=== PATIENT | male | born 1970 | race Caucasian/White ===

== ENCOUNTER 2017-01-31 10:43 | Emergency (ER) | payer BC, OTHER ==
[2017-01-31] MEDS ORDERED: LORazepam 0.5 MG Tab PO ONE (11:13)
[2017-01-31] MEDS ORDERED: Ketorolac 60 MG/2 ML SDV IM ONE (11:13)
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
[2017-01-31 13:17] VITALS: BP 138/90
--- NOTE | 2017-02-01 07:26 | CR ---
Abdomen: Supine and upright views of the abdomen were obtained. Comparison: Previous abdominal x-ray of 08/05/16. Slight vascular calcification is seen within the pelvis. Bowel gas pattern is normal. No soft tissue abnormality is seen. No free air is identified. Bony structures are within normal limits for the patient's age. Impression: 1. Incidental findings. Diagnostic code #2
== END 2017-01-31 12:05 | disposition home or self-care (01) ==
LOC: JD.ED 10:43
DX: F41.9 Anxiety disorder, unspecified (principal); R51 Headache; M79.1 Myalgia; I10 Essential (primary) hypertension; K21.9 Gastro-esophageal reflux disease without esophagitis; Z79.899 Other long term (current) drug therapy; Z98.890 Other specified postprocedural states; V89.2XXA Person injured in unspecified motor-vehicle accident, traffic, initial encounter
CPT/HCPCS: 74020; 96372; 99284; A9270; J1885; 99283

== ENCOUNTER 2017-04-06 17:27 | Emergency (ER) | payer OTHER ==
[2017-04-06 17:40] VITALS: BP 169/89
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
[2017-04-06] MEDS ORDERED: Ondansetron 4 MG Tab.DIS PO ONE (18:14)
[2017-04-06] MEDS ORDERED: Ketorolac 30 MG/ML SDV IM ONE (18:14)
[2017-04-06] MEDS ORDERED: Cyclobenzaprine 10 MG Tab PO ONE (18:14)
== END 2017-04-06 19:38 | disposition home or self-care (01) ==
LOC: JD.ED 17:27
DX: G44.209 Tension-type headache, unspecified, not intractable (principal); K21.9 Gastro-esophageal reflux disease without esophagitis; E66.9 Obesity, unspecified; Z79.899 Other long term (current) drug therapy
CPT/HCPCS: 96372; 99284; A9270; J1885

== ENCOUNTER 2017-08-09 11:49 | Emergency (ER) | payer OTHER ==
[2017-08-09 12:11] VITALS: BP 160/98
[2017-08-09] MEDS ORDERED: Ondansetron 4 MG/2 ML SDV IVPUSH ONE (12:58)
[2017-08-09] MEDS ORDERED: Alum Hydrox/Mag Hydrox/Simeth 30 ML, Lidocaine 2% 15 ML PO ONE ×2 (12:58)
[2017-08-09] MEDS ORDERED: Sodium Chloride 0.9% 10 ML Syringe FLUSH PRN ×2 (12:58→15:29)
[2017-08-09] MEDS ORDERED: Sodium Chloride 0.9% 1,000 ML IV ONE (12:58)
--- NOTE | 2017-08-09 13:22 | EDM.PDOC ---
ED HPI GENERAL MEDICAL PROBLEM - General Chief Complaint: Abdominal Pain Stated Complaint: ABDOMINAL PAIN Time Seen by Provider: 08/09/17 12:49 Source of Information: Reports: Patient History Limitations: Reports: No Limitations - History of Present Illness INITIAL COMMENTS - FREE TEXT/NARRATIVE: Patient 46-year-old male who presents to the ED complaining of epigastric discomfort. Symptoms started approx 5 days ago and have been waxing waning in intensity since. With onset of discomfort he has been mildly nauseated and has some episodes of emesis. Describes discomfort as a crampy sensation, acid reflux burning sensation, rated 8 out of 10 at times. He has been taking Prilosec daily. He continues to drink caffeine 3 cups of coffee every morning and eats spicy foods that do aggravate the discomfort. States there is no relation to discomfort with fatty foods. States the discomfort does increase with leaning forward and also with palpation and bending over. States he still has his gallbladder and appendix. He's never had an ulcer in the past. He's been diagnosed with hypertension and is currently well controlled. Denies consuming excessive amounts of alcohol or taking excessive amounts of ibuprofen/ Advil. Currently denies any chest pain, shortness of breath, bloody emesis or blood in his stool, diarrhea, recent sick exposures, painful urination, or any additional complaints. Upper Abdomen Pain Score (Numeric/FACES): 6 - Related Data Allergies Allergy/AdvReac Type Severity Reaction Status Date / Time No Known Allergies Allergy Verified 08/09/17 12:12 Home Meds: Home Meds Lisinopril 20 mg PO DAILY 01/31/17 [History] Omeprazole Magnesium [Prilosec Otc] 20 mg PO DAILY 01/31/17 [History] Acetaminophen/HYDROcodone [Lanse 325-5 MG] 1 tab PO Q6H PRN #15 tablet 08/09/17 [Rx] Aspirin 81 mg PO DAILY 08/09/17 [History] Sucralfate [Carafate] 1 gm PO Q6H #24 cup 08/09/17 [Rx] Past Medical History - Past Health History Medical/Surgical History: Denies Medical/Surgical History Cardiovascular History: Reports: Hypertension Gastrointestinal History: Reports: GERD Psychiatric History: Reports: Anxiety Endocrine/Metabolic History: Reports: Obesity/BMI 30+ - Past Surgical History Musculoskeletal Surgical History: Reports: Other (See Below) Other Musculoskeletal Surgeries/Procedures:: neck fusion Social & Family History - Family History Family Medical History: Noncontributory - Tobacco Use Smoking Status *Q: Never Smoker Second Hand Smoke Exposure: No - Caffeine Use Caffeine Use: Reports: Coffee - Recreational Drug Use Recreational Drug Use: No - Living Situation & Occupation Living situation: Reports: Occupation: Employed ED ROS GENERAL - Review of Systems Review Of Systems: See Below Constitutional: Reports: Malaise, Decreased Appetite. Denies: Fever, Chills HEENT: Reports: No Symptoms Respiratory: Reports: No Symptoms Cardiovascular: Reports: No Symptoms GI/Abdominal: Reports: Abdominal Pain, Decreased Appetite, Nausea, Vomiting. Denies: Black Stool, Bloody Stool, Constipation, Diarrhea, Distension, Hematemesis : Reports: No Symptoms Musculoskeletal: Reports: No Symptoms Skin: Reports: No Symptoms Neurological: Reports: No Symptoms Psychiatric: Reports: No Symptoms ED EXAM, GI/ABD - Physical Exam Exam: See Below Exam Limited By: No Limitations General Appearance: Alert, WD/WN, Mild Distress Ears: Hearing Grossly Normal Nose: Normal Inspection Throat/Mouth: Normal Inspection, Normal Oropharynx, Normal Voice, No Airway Compromise Neck: Normal Inspection, Supple Respiratory/Chest: No Respiratory Distress, Lungs Clear, Normal Breath Sounds, No Accessory Muscle Use, Chest Non-Tender Cardiovascular: Normal Peripheral Pulses, Regular Rate, Rhythm GI/Abdominal Exam: Normal Bowel Sounds, Soft, No Organomegaly, No Distention, Tender (Epigastric region. No pain with palpation of the right upper and left upper quadrant. Negative Hawthorne sign. Negative McBurney's point.) Back Exam: Normal Inspection Extremities: Normal Inspection Neurological: Alert, Oriented, CN II-XII Intact, Normal Cognition, No Motor/ Sensory Deficits Psychiatric: Normal Affect, Normal Mood Skin Exam: Warm, Dry, Intact, Normal Color, No Rash Course - Vital Signs Last Recorded V/S: Last Vital Signs Temp 97.1 F 08/09/17 12:07 Pulse 86 08/09/17 12:07 Resp 16 08/09/17 12:07 BP 160/98 H 08/09/17 12:07 Pulse Ox 96 08/09/17 12:07 - Orders/Labs/Meds Labs: Laboratory Tests 08/09/17 08/09/17 08/09/17 Range/Units 13:15 13:15 13:15 WBC 11.37 H (4.23-9.07) K/mm3 RBC 5.98 (4.63-6.08) M/mm3 Hgb 16.6 (13.7-17.5) gm/L Hct 46.6 (40.1-51.0) % MCV 77.9 L (79.0-92.2) fl MCH 27.8 (25.7-32.2) pg MCHC 35.6 H (32.2-35.5) g/dl RDW Std Deviation 36.4 (35.1-43.9) fL Plt Count 200 (163-337) K/mm3 MPV 10.3 (9.4-12.3) fl Neut % (Auto) 66.0 (34.0-67.9) % Lymph % (Auto) 22.2 (21.8-53.1) % Wilkes % (Auto) 7.8 (5.3-12.2) % Eos % (Auto) 2.4 (0.8-7.0) Baso % (Auto) 0.5 (0.1-1.2) % Neut # (Auto) 7.51 H (1.78-5.38) K/mm3 Lymph # (Auto) 2.52 (1.32-3.57) K/mm3 Wilkes # (Auto) 0.89 H (0.30-0.82) K/mm3 Eos # (Auto) 0.27 (0.04-0.54) K/mm3 Baso # (Auto) 0.06 (0.01-0.08) K/mm3 Manual Slide Review Normal smear Sodium 139 (136-145) mEq/L Potassium 3.8 (3.5-5.1) mEq/L Chloride 100 (98-107) mEq/L Carbon Dioxide 26 (21-32) mEq/L Anion Gap 16.8 H (5-15) BUN 19 H (7-18) mg/dL Creatinine 1.1 (0.7-1.3) mg/dL Est Cr Clr Drug Dosing 79.45 mL/min Estimated GFR (MDRD) > 60 (>60) mL/min BUN/Creatinine Ratio 17.3 (14-18) Glucose 120 H (74-106) mg/dL Calcium 9.1 (8.5-10.1) mg/dL Total Bilirubin 0.4 (0.2-1.0) mg/dL AST 26 (15-37) U/L ALT 65 H (16-63) U/L Alkaline Phosphatase 86 (46-116) U/L Troponin I < 0.017 (0.00-0.056) ng/mL C-Reactive Protein < 0.2 (<1.0) mg/dL Total Protein 7.6 (6.4-8.2) g/dl Albumin 4.1 (3.4-5.0) g/dl Globulin 3.5 gm/dL Albumin/Globulin Ratio 1.2 (1-2) Lipase 135 (73-393) U/L Urine Color (Yellow) Urine Appearance (Clear) Urine pH (5.0-8.0) Ur Specific [place] (1.005-1.030) Urine Protein (Negative) Urine Glucose (UA) (Negative) Urine Ketones (Negative) Urine Occult Blood (Negative) Urine Nitrite (Negative) Urine Bilirubin (Negative) Urine Urobilinogen (0.2-1.0) Ur Leukocyte Esterase (Negative) Urine RBC (0-5) /hpf Urine WBC (0-5) /hpf Ur Epithelial Cells (0-5) /hpf Urine Bacteria (FEW) /hpf Urine Mucus (FEW) /hpf 08/09/17 Range/Units 13:50 WBC (4.23-9.07) K/mm3 RBC (4.63-6.08) M/mm3 Hgb (13.7-17.5) gm/L Hct (40.1-51.0) % MCV (79.0-92.2) fl MCH (25.7-32.2) pg MCHC (32.2-35.5) g/dl RDW Std Deviation (35.1-43.9) fL Plt Count (163-337) K/mm3 MPV (9.4-12.3) fl Neut % (Auto) (34.0-67.9) % Lymph % (Auto) (21.8-53.1) % Wilkes % (Auto) (5.3-12.2) % Eos % (Auto) (0.8-7.0) Baso % (Auto) (0.1-1.2) % Neut # (Auto) (1.78-5.38) K/mm3 Lymph # (Auto) (1.32-3.57) K/mm3 Wilkes # (Auto) (0.30-0.82) K/mm3 Eos # (Auto) (0.04-0.54) K/mm3 Baso # (Auto) (0.01-0.08) K/mm3 Manual Slide Review Sodium (136-145) mEq/L Potassium (3.5-5.1) mEq/L Chloride (98-107) mEq/L Carbon Dioxide (21-32) mEq/L Anion Gap (5-15) BUN (7-18) mg/dL Creatinine (0.7-1.3) mg/dL Est Cr Clr Drug Dosing mL/min Estimated GFR (MDRD) (>60) mL/min BUN/Creatinine Ratio (14-18) Glucose (74-106) mg/dL Calcium (8.5-10.1) mg/dL Total Bilirubin (0.2-1.0) mg/dL AST (15-37) U/L ALT (16-63) U/L Alkaline Phosphatase (46-116) U/L Troponin I (0.00-0.056) ng/mL C-Reactive Protein (<1.0) mg/dL Total Protein (6.4-8.2) g/dl Albumin (3.4-5.0) g/dl Globulin gm/dL Albumin/Globulin Ratio (1-2) Lipase (73-393) U/L Urine Color Yellow (Yellow) Urine Appearance Clear (Clear) Urine pH 6.0 (5.0-8.0) Ur Specific [place] 1.025 (1.005-1.030) Urine Protein Negative (Negative) Urine Glucose (UA) Negative (Negative) Urine Ketones Negative (Negative) Urine Occult Blood Negative (Negative) Urine Nitrite Negative (Negative) Urine Bilirubin Negative (Negative) Urine Urobilinogen 0.2 (0.2-1.0) Ur Leukocyte Esterase Negative (Negative) Urine RBC 0-5 (0-5) /hpf Urine WBC 0-5 (0-5) /hpf Ur Epithelial Cells 0-5 (0-5) /hpf Urine Bacteria Rare (FEW) /hpf Urine Mucus Few (FEW) /hpf Meds: Medications Discontinued Medications Generic Name Dose Route Start Last Admin Trade Name Freq PRN Reason Stop Dose Admin Al Hydroxide/Mg Hydroxide 30 0 ml 02/23/18 12:58 08/09/17 13:24 ml/ Lidocaine HCl 15 ml PO 08/09/17 12:59 45 ml ONETIME ONE Administration Diatrizoate Meglum/Diatrizoate Sod 90 ml 08/09/17 15:29 08/09/17 15:36 Gastrografin 37% PO 08/09/17 15:30 90 ml ONETIME ONE Administration Diphenhydramine HCl 25 mg 08/09/17 14:23 08/09/17 14:34 Benadryl IVPUSH 08/09/17 14:24 25 mg ONETIME ONE Administration Hydromorphone HCl 0.5 mg 08/09/17 14:17 08/09/17 14:32 Dilaudid IVPUSH 08/09/17 14:18 0.5 mg ONETIME ONE Administration Hydromorphone HCl 0.5 mg 08/09/17 16:27 08/09/17 16:44 Dilaudid IVPUSH 08/09/17 16:28 0.5 mg ONETIME ONE Administration Sodium Chloride 1,000 mls @ 999 mls/hr 08/09/17 12:58 08/09/17 13:23 Normal Saline IV 08/09/17 13:58 999 mls/hr ONETIME ONE Administration Iopamidol 100 ml 08/09/17 15:29 08/09/17 15:36 Isovue-300 (61%) IVPUSH 08/09/17 15:30 100 ml ONETIME ONE Administration Metoclopramide HCl 5 mg 08/09/17 14:23 08/09/17 14:29 Reglan IVPUSH 08/09/17 14:24 5 mg ONETIME ONE Administration Ondansetron HCl 4 mg 08/09/17 12:58 08/09/17 13:21 Zofran IVPUSH 08/09/17 12:59 4 mg ONETIME ONE Administration Pantoprazole Sodium 80 mg 08/09/17 14:08 08/09/17 14:20 Protonix Iv IVPUSH 08/09/17 14:09 80 mg .BOLUS ONE Administration Sodium Chloride 10 ml 08/09/17 12:58 08/09/17 13:15 Saline Flush FLUSH 10 ml ASDIRECTED PRN Administration Keep Vein Open Sodium Chloride 10 ml 08/09/17 15:29 08/09/17 15:36 Saline Flush FLUSH 10 ml ONETIME PRN Administration IV FLUSH Sucralfate 1 gm 08/09/17 14:08 08/09/17 14:25 Carafate PO 08/09/17 14:09 1 gm ONETIME ONE Administration Sucralfate 1 gm 08/09/17 16:27 08/09/17 16:43 Carafate PO 08/09/17 16:28 1 gm ONETIME ONE Administration - Re-Assessments/Exams Free Text/Narrative Re-Assessment/Exam: IV established with normal saline 999 MLS per hour, Zofran 4 mg IVP, and also GI cocktail by mouth. Initial labs and studies include CBC, chem 14, lipase, UA, CRP, EKG, and 2 view of the abdomen flat and upright. 08/09/17 13:47 X-ray of the abdomen impression: Incidental findings. Nothing acute is seen. EKG sinus rhythm at a rate of [address] changes noted. One PVC noted. Reviewed by Dr. Marcelo. No significant findings. 08/09/17 13:49 Labs reviewed: White blood cell count 11.37, hemoglobin 16.6, platelet count 200, sodium 139, potassium 3.8, AG 16.8, by mouth and 19, creatinine 1.1, glucose 120, AST 65, CRP less than 0.2, and lipase 135. 08/09/17 14:09 reassessment, patient has no improvement is to his symptoms. Ordered a CT of the abdomen and pelvis with oral and IV contrast. In addition ordered Protonix 80 mg IV and sucralfate. 08/09/17 16:26 CT impression: Small hiatal hernia with wall thickening seen within the distal esophagus suggesting reflux esophagitis. Fatty infiltration within the liver. No additional abnormality is identified on CT study of the abdomen and pelvis. Patient continues to have some mild discomfort and mild nausea improving. Shared results of labs and also CT study with him. Will discharge patient home with instructions as documented. Troponin: Within normal limits. If is related to his heart troponin should be elevated. Symptoms have been going on for 4 days. Patient discharged home. Departure - Departure Time of Disposition: 16:27 Disposition: Home, Self-Care 01 Condition: Good Clinical Impression: Reflux esophagitis - Discharge Information Prescriptions: Acetaminophen/HYDROcodone [Lanse 325-5 MG] 1 tab PO Q6H PRN #15 tablet PRN Reason: Pain (Severe 7-10) Sucralfate [Carafate] 1 gm PO Q6H #24 cup Instructions: Esophagitis, Food Choices for Gastroesophageal Reflux Disease, Adult, Nausea and Vomiting, Adult, [id number], Abdominal Pain, Adult, Easy-to- Read, Gastroesophageal Reflux Disease, Adult Referrals: Elie Luna Jr, MD [Primary Care Provider] - Reinaldo Blas MD [Physician] - Forms: ED Department Discharge, ED Return to Work/School Form Additional Instructions: As discussed CT of reflux esophagitis. Treatment at this point will be Prilosec 40 mg every morning half-hour prior to eating. Carafate one tab every 6 hours. May take Zantac 150 mg at at bedtime as well. Take Lanse one tab every 6 hours for severe pain. May take Zofran One tab every 6 hours as needed for nausea vomiting. Refrain from spicy foods, alcoholic beverages, chocolates, carbonated beverages, caffeinated beverages, or any additional aggravating foods or liquids. You will need a EGD. See your primary care provider this following week for reevaluation. Return to the ED for any new or worsening symptoms. No driving while taking the Lanse. No driving today since receiving a sedative medication while in the ED.
--- NOTE | 2017-08-09 13:40 | CR ---
Abdomen: Supine and upright views of the abdomen were obtained. Comparison: Previous abdominal x-ray of 01/31/17. Bowel gas pattern is normal. Minimal vascular calcification is seen within the pelvis. No abnormal calcifications or soft tissue abnormality is seen.. No free air is seen. Bony structures are unremarkable. Impression: 1. Incidental finding. Nothing acute is seen. Diagnostic code #2
[2017-08-09] MEDS ORDERED: Pantoprazole 40 MG Vial IVPUSH ONE (14:08)
[2017-08-09] MEDS ORDERED: Sucralfate Suspension 1 GM/10 ML Cup PO ONE ×2 (14:08→16:27)
[2017-08-09] MEDS ORDERED: HYDROmorphone 0.5 MG/0.5 ML SYRINGE IVPUSH ONE ×2 (14:17→16:27)
[2017-08-09] MEDS ORDERED: Metoclopramide 10 MG/2 ML SDV IVPUSH ONE (14:23)
[2017-08-09] MEDS ORDERED: diphenhydrAMINE 50 MG/ML SDV IVPUSH ONE (14:23)
[2017-08-09] MEDS ORDERED: Iopamidol 612 MG/ML 100 ML Bottle IVPUSH ONE (15:29)
[2017-08-09] MEDS ORDERED: Diatrizoate Meglumine/Diatrizoate Sodium 37% 120 ML Bottle PO ONE (15:29)
--- NOTE | 2017-08-09 16:07 | CT ---
CT abdomen and pelvis Technique: Multiple axial sections were obtained from above the dome of the diaphragm inferiorly through the pubic symphysis. Intravenous and oral contrast utilized. Delayed images were obtained through the bladder. Comparison: No prior CT abdomen or pelvis study, previous abdominal x-ray performed earlier on the same day (12:54 PM). Visualized lung bases shows nothing acute. Fatty infiltration is seen within the liver. Small hiatal hernia is seen. There is thickening of the distal esophageal wall suggesting the possibility of reflux esophagitis. Spleen appears within normal limits. Gallbladder contains no calcified gallstones. Adrenal glands are unremarkable. Pancreas appears within normal limits. Kidneys show symmetric contrast enhancement without hydronephrosis or mass. Aorta shows atherosclerotic calcification which continues into the iliac arteries. No aneurysm is seen. No retroperitoneal adenopathy or mesenteric abnormalities are seen. Appendix is seen which appears normal. No pelvic mass or adenopathy is identified. Delayed images shows contrast within the distal ureters and within the bladder. No free fluid or inflammatory change is seen. No bowel dilatation is identified. Bone window settings were reviewed which appear within normal limits for the patient's age. Impression: 1. Small hiatal hernia with wall thickening seen within the distal esophagus suggesting reflux esophagitis. 2. Fatty infiltration within the liver. 3. No additional abnormality is identified on CT study of the abdomen and pelvis. Diagnostic code #3
== END 2017-08-09 17:25 | disposition home or self-care (01) ==
LOC: JD.ED 11:49
DX: K21.0 Gastro-esophageal reflux disease with esophagitis (principal); K44.9 Diaphragmatic hernia without obstruction or gangrene; I10 Essential (primary) hypertension; Z79.82 Long term (current) use of aspirin; Z79.899 Other long term (current) drug therapy
CPT/HCPCS: 36415; 74019; 74177; 80053; 81001; 83690; 84484; 85025; 86140; 93005; 96361; 96374; 96375; 96376; 99285; A9270; C9113; J1170; J1200; J2405; J2765; J7040; J7050; Q9963; Q9967; 99284

== ENCOUNTER 2017-08-28 06:58 | Day surgery (SDC) | payer OTHER, SELFPAY ==
[~2017-08-28 06:58] MED LIST: Lactated Ringers 1,000 ML IV SCH; Lidocaine 1%/Sod Bicarbonate in NS 8.4% 1 ML Syringe IDERM PRN; Sodium Chloride 0.9% 10 ML Syringe FLUSH PRN
[2017-08-28] MEDS ORDERED: fentaNYL 100 MCG/2 ML SDV ONE (07:08)
[2017-08-28] MEDS ORDERED: Propofol 200 MG/20 ML SDV ONE (07:08)
[2017-08-28] MEDS ORDERED: Lidocaine 1% 4 ML ONE (07:13)
--- NOTE | 2017-08-28 07:25 | PCM.PREANE ---
Preanesthetic Assessment - Procedure Proposed Procedure: EGD - Anesthesia/Transfusion/Family Hx Anesthesia History: Prior Anesthesia Without Reaction Family History of Anesthesia Reaction: No - Review of Systems General: No Symptoms Pulmonary: No Symptoms Cardiovascular: No Symptoms Gastrointestinal: Abdominal Pain, Difficulty Swallowing (pills) Neurological: No Symptoms Other: Reports: None - Physical Assessment NPO Status Date: 08/27/17 NPO Status Time: 21:00 Pulse: 83 O2 Sat by Pulse Oximetry: 96 Respiratory Rate: 18 Blood Pressure: 148/101 Temperature: 36.6 C Weight: 106 kg ASA Class: 2 Mental Status: Alert & Oriented x3 Airway Class: Mallampati = 2 Dentition: Reports: Partial Thyro-Mental Finger Breadths: 3 Mouth Opening Finger Breadths: 3 ROM/Head Extension: Full Lungs: Clear to Auscultation, Normal Respiratory Effort Cardiovascular: Regular Rate, Regular Rhythm - Allergies Allergies/Adverse Reactions: Allergies Allergy/AdvReac Type Severity Reaction Status Date / Time No Known Allergies Allergy Verified 08/27/17 12:31 - Acknowledgements Anesthesia Type Planned: MAC Pt an Appropriate Candidate for the Planned Anesthesia: Yes Alternatives and Risks of Anesthesia Discussed w Pt/Guardian: Yes Pt/Guardian Understands and Agrees with Anesthesia Plan: Yes PreAnesthesia Questionnaire - Past Health History Medical/Surgical History: Denies Medical/Surgical History HEENT History: Reports: Other (See Below) Other HEENT History: partial Cardiovascular History: Reports: Hypertension Respiratory History: Reports: None Gastrointestinal History: Reports: GERD, Other (See Below) Other Gastrointestinal History: dysphagia Genitourinary History: Reports: Other (See Below) Other Genitourinary History: hydrocele, testicular mass, varicocele FLAT CUTTER History: Reports: None Musculoskeletal History: Reports: None Psychiatric History: Reports: None, Anxiety Endocrine/Metabolic History: Reports: Obesity/BMI 30+ Hematologic History: Reports: None Immunologic History: Reports: None Oncologic (Cancer) History: Reports: None Dermatologic History: Reports: None - Past Surgical History Head Surgeries/Procedures: Reports: None HEENT Surgical History: Reports: None Cardiovascular Surgical History: Reports: None Respiratory Surgical History: Reports: None Female Surgical History: Reports: None Male Surgical History: Reports: None Endocrine Surgical History: Reports: None Neurological Surgical History: Reports: C-Spine, Other (See Below) Other Neurological Surgeries/Procedures: [id number] fusion Musculoskeletal Surgical History: Reports: Other (See Below) Other Musculoskeletal Surgeries/Procedures:: neck fusion Oncologic Surgical History: Reports: None Dermatological Surgical History: Reports: None - SUBSTANCE USE Smoking Status *Q: Former Smoker Second Hand Smoke Exposure: No Recreational Drug Use History: No - HOME MEDS Home Medications: Home Meds Lisinopril 20 mg PO DAILY 01/31/17 [History] Omeprazole Magnesium [Prilosec Otc] 20 mg PO DAILY 01/31/17 [History] Modafinil [Provigil] 200 mg PO ASDIRECTED PRN 08/27/17 [History] - CURRENT (IN HOUSE) MEDS Current Meds: Current Medications Lactated Ringer's (Ringers, Lactated) 1,000 mls @ 125 mls/hr IV ASDIRECTED JERALD Lidocaine/Sodium Bicarbonate (Buffered Lidocaine 1% In Ns 8.4%) 0.25 ml IDERM ONETIME PRN PRN Reason: Prior to IV Start Sodium Chloride (Saline Flush) 10 ml FLUSH ASDIRECTED PRN PRN Reason: Keep Vein Open Discontinued Medications Fentanyl (Sublimaze) Confirm Administered Dose 100 mcg .ROUTE .STK-MED ONE Stop: 08/28/17 07:09 Lidocaine HCl (Xylocaine-Mpf 1%) Confirm Administered Dose 4 mls @ as directed .ROUTE .STK-MED ONE Stop: 08/28/17 07:14 Propofol (Diprivan 20 Ml) Confirm Administered Dose 200 mg .ROUTE .STK-MED ONE Stop: 08/28/17 07:09
--- NOTE | 2017-08-28 08:23 | PCM48HPAN ---
Post Anesthesia Note - EVALUATION WITHIN 48HRS OF ANESTHETIC Vital Signs in Normal Range: Yes Patient Participated in Evaluation: Yes Respiratory Function Stable: Yes Airway Patent: Yes Cardiovascular Function Stable: Yes Hydration Status Stable: Yes Pain Control Satisfactory: Yes Nausea and Vomiting Control Satisfactory: Yes Mental Status Recovered: Yes Pulse Rate: 84 SaO2: 96 Resp Rate: 16 Temperature: 36.2 C Blood Pressure: 129/85
--- NOTE | 2017-08-28 08:37 | PCM.OPNOTE ---
- General Post-Op/Procedure Note Date of Surgery/Procedure: 08/28/17 Operative Procedure(s): Esophagogastroduodenoscopy with proximal and distal esophageal biopsies. Gastric and antral biopsies as well. Findings: 1. Hiatal hernia 2. Gastric erosions lesser curve 3. Antritis There was no stricturing or esophageal webs. Pre Op Diagnosis: 1. Dysphagia. 2. Dyspepsia Post-Op Diagnosis: 1. Hiatal hernia sliding type I. 2. Small type 4 gastric ulcer. 3. Mild antritis Anesthesia Technique: MAC, Moderate Sedation Primary Surgeon: Reinaldo Blas Pathology: Distal and proximal esophageal biopsies. Gastric biopsies as well as antral biopsies. EBL in mLs: 0 Complications: None Condition: Good Free Text/Narrative:: After adequate IV sedation and analgesia was obtained with monitoring the patient was placed on his left side. Through a bite-block lubricated upper endoscope was inserted into the esophagus and advanced under direct vision to the stomach where additional air was given. The antrum was remarkable for diffuse erythema. There were no ulcers or erosions. The scope was introduced into the second part of the duodenum. The second and first ports were endoscopically normal with no inflammatory changes in these areas. I biopsied the antrum 2 for histologic evaluation. In the retroflexed view there were 2 shallow linear erosive ulcerations near the lesser curve with exudate. The peptic change in these areas are consistent with type IV gastric erosions. These were biopsied. The body of the stomach was otherwise unremarkable. The scope was withdrawn to the GE junction where there was a small hiatal hernia with no stasis changes. I biopsied the GE junction and the proximal esophagus. These structures were normal. Photographs were taken for the patient and for the record. There were no complications.
[2017-08-28 09:01] VITALS: BP 136/74
== END 2017-08-28 08:56 | disposition home or self-care (01) ==
LOC: JD.SDS 06:58
PROVIDERS: ATTEND Surgery
DX: K29.50 Unspecified chronic gastritis without bleeding (principal); K31.9 Disease of stomach and duodenum, unspecified; K31.7 Polyp of stomach and duodenum; K44.9 Diaphragmatic hernia without obstruction or gangrene; K29.60 Other gastritis without bleeding; K25.9 Gastric ulcer, unspecified as acute or chronic, without hemorrhage or perforation; K21.9 Gastro-esophageal reflux disease without esophagitis; I10 Essential (primary) hypertension; N43.3 Hydrocele, unspecified; N50.9 Disorder of male genital organs, unspecified; I86.1 Scrotal varices; E66.9 Obesity, unspecified; F41.9 Anxiety disorder, unspecified; Z79.899 Other long term (current) drug therapy; Z87.891 Personal history of nicotine dependence; Z68.36 Body mass index [BMI] 36.0-36.9, adult
CPT/HCPCS: 43239; J3010; J7120; 00731; J2001; J2704

== ENCOUNTER 2017-10-23 12:03 | Emergency (ER) | payer MEDICAID, OTHER ==
[2017-10-23 12:17] VITALS: BP 153/101
[2017-10-23] MEDS ORDERED: Famotidine 20 MG/2 ML SDV IVPUSH ONE (12:32)
[2017-10-23] MEDS ORDERED: Sodium Chloride 0.9% 500 ML IV ONE (12:32)
[2017-10-23] MEDS ORDERED: Sodium Chloride 0.9% 10 ML Syringe FLUSH PRN (12:32)
[2017-10-23] MEDS ORDERED: Ondansetron 4 MG/2 ML SDV IVPUSH ONE (12:32)
[2017-10-23] MEDS ORDERED: Acetaminophen 325 MG Tab PO ONE (15:06)
[2017-10-23] MEDS ORDERED: HYDROmorphone 0.5 MG/0.5 ML SYRINGE IVPUSH ONE (15:06)
[2017-10-23] MEDS ORDERED: Metoclopramide 10 MG/2 ML SDV IVPUSH ONE (15:06)
[2017-10-23] MEDS ORDERED: Ketorolac 30 MG/ML SDV IVPUSH SCH (15:15)
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
--- NOTE | 2017-10-24 10:20 | CR ---
Chest: Frontal view of the chest was obtained. Comparison: No prior chest x-ray. Heart size and mediastinum are normal. Lungs are clear. Bony structures are grossly intact. Impression: 1. Nothing acute is seen on frontal chest x-ray. Diagnostic code #1
== END 2017-10-23 16:05 | disposition home or self-care (01) ==
LOC: JD.ED 12:03
DX: R07.89 Other chest pain (principal); R42 Dizziness and giddiness; R51 Headache; I10 Essential (primary) hypertension; K21.9 Gastro-esophageal reflux disease without esophagitis; F41.9 Anxiety disorder, unspecified; Z87.891 Personal history of nicotine dependence; Z79.899 Other long term (current) drug therapy
CPT/HCPCS: 36415; 71045; 80053; 83690; 84484; 85025; 86850; 86900; 86901; 93005; 96361; 96374; 96375; 99284; A9270; J1170; J1885; J2405; J2765; J7040; J7050; 93010

== ENCOUNTER 2018-02-06 16:55 | Emergency (ER) | payer MEDICAID ==
[2018-02-06 17:12] VITALS: BP 121/70
[2018-02-06] MEDS ORDERED: Sodium Chloride 0.9% 10 ML Syringe FLUSH PRN (17:21)
[2018-02-06] MEDS ORDERED: Ondansetron 4 MG/2 ML SDV IVPUSH ONE ×2 (17:21→18:25)
[2018-02-06] MEDS ORDERED: Lactated Ringers 1,000 ML IV ONE ×2 (17:21→18:25)
[2018-02-06] MEDS ORDERED: Famotidine 20 MG/2 ML SDV IVPUSH ONE (17:21)
[2018-02-06] MEDS ORDERED: Ketorolac 30 MG/ML SDV IVPUSH ONE (17:21)
--- NOTE | 2018-02-06 18:02 | EDM.PDOC ---
ED HPI GENERAL MEDICAL PROBLEM - General Chief Complaint: Gastrointestinal Problem Stated Complaint: VOMITTING Time Seen by Provider: 02/06/18 17:04 Source of Information: Reports: Patient History Limitations: Reports: No Limitations - History of Present Illness INITIAL COMMENTS - FREE TEXT/NARRATIVE: 47-year-old male presents for evaluation and treatment of abdominal pain, nausea , vomiting and diarrhea. Reports the symptoms started last night around 1700. He states that anything he eats either causes emesis or diarrhea. He is currently complaining of headaches, body aches, nausea, vomiting, diarrhea and hematochezia. Is unable estimate how many episodes of emesis he has had, greater than 10 or he is unable to estimate how many episodes of diarrhea he has had, greater than 10. No blood in his stool. Denies recent antibiotic usage. Denies any recent travel. No ill contacts. No Questionable foods. Location: Reports: Abdomen Abdominal Pain Score (Numeric/FACES): 8 - Related Data Allergies Allergy/AdvReac Type Severity Reaction Status Date / Time No Known Allergies Allergy Verified 02/06/18 20:35 Home Meds: Home Meds Lisinopril 20 mg PO DAILY 01/31/17 [History] Omeprazole Magnesium [Prilosec Otc] 20 mg PO DAILY 01/31/17 [History] Modafinil [Provigil] 200 mg PO ASDIRECTED PRN 08/27/17 [History] Ondansetron [Zofran ODT] 4 mg PO Q6H PRN #20 tab.dis 02/06/18 [Rx] Past Medical History - Past Health History Medical/Surgical History: Denies Medical/Surgical History HEENT History: Reports: Other (See Below) Other HEENT History: partial Cardiovascular History: Reports: Hypertension Respiratory History: Reports: None Gastrointestinal History: Reports: GERD, Other (See Below) Other Gastrointestinal History: dysphagia Genitourinary History: Reports: Other (See Below) Other Genitourinary History: hydrocele, testicular mass, varicocele 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 Musculoskeletal History: Reports: Back Pain, Chronic Psychiatric History: Reports: None, Anxiety Endocrine/Metabolic History: Reports: Obesity/BMI 30+ Hematologic History: Reports: None Immunologic History: Reports: None Oncologic (Cancer) History: Reports: None Dermatologic History: Reports: None - Past Surgical History Head Surgeries/Procedures: Reports: None HEENT Surgical History: Reports: None Cardiovascular Surgical History: Reports: None Respiratory Surgical History: Reports: None Male Surgical History: Reports: None Endocrine Surgical History: Reports: None Neurological Surgical History: Reports: C-Spine, Other (See Below) Other Neurological Surgeries/Procedures: c3c4 fusion Musculoskeletal Surgical History: Reports: Other (See Below) Other Musculoskeletal Surgeries/Procedures:: neck fusion Oncologic Surgical History: Reports: None Dermatological Surgical History: Reports: None Social & Family History - Family History Family Medical History: Noncontributory - Caffeine Use Caffeine Use: Reports: Coffee - Living Situation & Occupation Living situation: Reports: Occupation: Employed ED ROS GENERAL - Review of Systems Review Of Systems: See Below Constitutional: Reports: Decreased Appetite, Other (bodyaches) GI/Abdominal: Reports: Abdominal Pain, Diarrhea, Hematochezia, Nausea, Vomiting. Denies: Bloody Stool : Reports: No Symptoms Musculoskeletal: Reports: Back Pain Neurological: Reports: Headache ED EXAM, GI/ABD - Physical Exam Exam: See Below Exam Limited By: No Limitations General Appearance: Alert, WD/WN, Moderate Distress, Obese Throat/Mouth: Normal Inspection, Normal Lips, Normal Voice, No Airway Compromise Respiratory/Chest: No Respiratory Distress, Lungs Clear, Normal Breath Sounds Cardiovascular: Normal Peripheral Pulses, Regular Rate, Rhythm, No Murmur GI/Abdominal Exam: Normal Bowel Sounds, Soft, Tender (epigastic ). No: Guarding , Rebound Neurological: Alert, Oriented, Normal Cognition Psychiatric: Normal Affect, Normal Mood Skin Exam: Warm, Dry, Normal Color Course - Vital Signs Last Recorded V/S: Last Vital Signs Temp 98.8 F 02/06/18 17:08 Pulse 98 02/06/18 17:08 Resp 18 02/06/18 17:08 BP 121/70 02/06/18 17:08 Pulse Ox 100 02/06/18 17:08 - Orders/Labs/Meds Orders: Active Orders 24 hr Category Date Time Status Peripheral IV Care [RC] . DIRECTED Care 02/06/18 17:22 Active UA W/MICROSCOPIC [URIN] Stat Lab 02/06/18 20:49 Ordered Peripheral IV Insertion Adult [OM.PC] Routine Oth 02/06/18 17:21 Ordered Labs: Laboratory Tests 02/06/18 02/06/18 02/06/18 Range/Units 17:15 17:15 20:49 WBC 7.62 (4.23-9.07) K/mm3 RBC 5.95 (4.63-6.08) M/mm3 Hgb 17.0 (13.7-17.5) gm/L Hct 48.5 (40.1-51.0) % MCV 81.5 (79.0-92.2) fl MCH 28.6 (25.7-32.2) pg MCHC 35.1 (32.2-35.5) g/dl RDW Std Deviation 39.0 (35.1-43.9) fL Plt Count 204 (163-337) K/mm3 MPV 10.8 (9.4-12.3) fl Neutrophils % (Manual) 77 H (40-60) % Band Neutrophils % 0 (0-10) % Lymphocytes % (Manual) 20 (20-40) % Atypical Lymphs % 0 % Monocytes % (Manual) 3 (2-10) % Eosinophils % (Manual) 0 L (0.8-7.0) % Basophils % (Manual) 0 L (0.2-1.2) Platelet Estimate Adequate Plt Morphology Comment Normal RBC Morph Comment Normal Sodium 140 (136-145) mEq/L Potassium 3.7 (3.5-5.1) mEq/L Chloride 103 (98-107) mEq/L Carbon Dioxide 26 (21-32) mEq/L Anion Gap 14.7 (5-15) BUN 27 H (7-18) mg/dL Creatinine 1.2 (0.7-1.3) mg/dL Est Cr Clr Drug Dosing 76.89 mL/min Estimated GFR (MDRD) > 60 (>60) mL/min BUN/Creatinine Ratio 22.5 H (14-18) Glucose 113 H (74-106) mg/dL Calcium 9.4 (8.5-10.1) mg/dL Magnesium 2.0 (1.8-2.4) mg/dl Total Bilirubin 0.8 (0.2-1.0) mg/dL AST 44 H (15-37) U/L ALT 76 H (16-63) U/L Alkaline Phosphatase 109 (46-116) U/L C-Reactive Protein 2.3 H* (<1.0) mg/dL Total Protein 8.2 (6.4-8.2) g/dl Albumin 4.6 (3.4-5.0) g/dl Globulin 3.6 gm/dL Albumin/Globulin Ratio 1.3 (1-2) Lipase 161 (73-393) U/L Urine Color Dark yellow (Yellow) Urine Appearance Slt cloudy H (Clear) Urine pH 6.0 (5.0-8.0) Ur Specific [place] > or = 1.030 (1.005-1.030) Urine Protein 2+ H (Negative) Urine Glucose (UA) Negative (Negative) Urine Ketones Trace H (Negative) Urine Occult Blood Negative (Negative) Urine Nitrite Negative (Negative) Urine Bilirubin 1+ H (Negative) Urine Urobilinogen 0.2 (0.2-1.0) Ur Leukocyte Esterase Negative (Negative) Urine RBC 0-5 (0-5) /hpf Urine WBC 0-5 (0-5) /hpf Ur Epithelial Cells 0-5 (0-5) /hpf Urine Bacteria Rare (FEW) /hpf Urine Mucus Many H (FEW) /hpf Meds: Medications Discontinued Medications Generic Name Dose Route Start Last Admin Trade Name Freq PRN Reason Stop Dose Admin Famotidine 20 mg 02/06/18 17:21 02/06/18 17:44 Pepcid IVPUSH 02/06/18 17:22 20 mg ONETIME ONE Administration Hydromorphone HCl 0.5 mg 02/06/18 18:25 02/06/18 18:39 Dilaudid IVPUSH 02/06/18 18:26 0.5 mg ONETIME ONE Administration Lactated Ringer's 1,000 mls @ 999 mls/hr 02/06/18 17:21 02/06/18 17:40 Ringers, Lactated IV 02/06/18 18:21 999 mls/hr .BOLUS ONE Administration Lactated Ringer's 1,000 mls @ 999 mls/hr 02/06/18 18:25 02/06/18 18:38 Ringers, Lactated IV 02/06/18 19:25 999 mls/hr .BOLUS ONE Administration Lactated Ringer's 500 mls @ 999 mls/hr 02/06/18 19:57 02/06/18 20:30 Ringers, Lactated IV 02/06/18 20:27 999 mls/hr .BOLUS ONE Administration Ketorolac Tromethamine 30 mg 02/06/18 17:21 02/06/18 17:42 Toradol IVPUSH 02/06/18 17:22 30 mg ONETIME ONE Administration Metoclopramide HCl 5 mg 02/06/18 19:57 02/06/18 20:30 Reglan IVPUSH 02/06/18 19:58 5 mg ONETIME ONE Administration Metoclopramide HCl Confirm 02/06/18 20:24 Reglan Administered 02/06/18 20:25 Dose 10 mg .ROUTE .STK-MED ONE Ondansetron HCl 4 mg 02/06/18 17:21 02/06/18 17:40 Zofran IVPUSH 02/06/18 17:22 4 mg ONETIME ONE Administration Ondansetron HCl 4 mg 02/06/18 18:25 02/06/18 18:38 Zofran IVPUSH 02/06/18 18:26 4 mg ONETIME ONE Administration Sodium Chloride 10 ml 02/06/18 17:21 02/06/18 17:47 Saline Flush FLUSH 10 ml ASDIRECTED PRN Administration Keep Vein Open - Re-Assessments/Exams Free Text/Narrative Re-Assessment/Exam: 02/06/18 21:27 Reviewed the labs that the patient. He is dehydrated. He has received several liters of fluid here in the ER. This does appear to be a viral gastroenteritis. I did educate him this will take several days to recover from this. Follow-up in clinic if not much better. Recommend symptomatic care. Discharge instructions as documented. Departure - Departure Time of Disposition: 21:28 Disposition: Home, Self-Care 01 Condition: Fair Clinical Impression: Gastroenteritis - Discharge Information *PRESCRIPTION DRUG MONITORING PROGRAM REVIEWED*: Yes *COPY OF PRESCRIPTION DRUG MONITORING REPORT IN PATIENT MARGIE: No Prescriptions: Ondansetron [Zofran ODT] 4 mg PO Q6H PRN #20 tab.dis PRN Reason: Nausea Instructions: Viral Gastroenteritis, Adult, [id number] Referrals: Marce Vides, SR. VEND[employer] MANAGEMENT ASSOCIATE [Primary Care Provider] - Forms: ED Department Discharge Additional Instructions: [id number] ibuprofen or Tylenol as needed for discomfort. Make sure you drink plenty of fluids. Recommend bland foods such as crackers, bread, soup broth etc. as tolerated. Zofran 1 tab sublingual every 6-8 hours as needed for nausea. Follow-up with your primary care provider if your symptoms have not improved much by Saturday or Saturday next week. She her symptoms to last about 3-5 days. If they last longer follow-up with your primary care provider. Recommend probiotic. these are available [id number]. Please return to the ER if your symptoms change or worsen. - My Orders Last 24 Hours: My Active Orders 02/06/18 17:21 Peripheral IV Insertion Adult [OM.PC] Routine 02/06/18 17:22 Peripheral IV Care [RC] . DIRECTED 02/06/18 20:49 UA W/MICROSCOPIC [URIN] Stat - Assessment/Plan Last 24 Hours: My Active Orders 02/06/18 17:21 Peripheral IV Insertion Adult [OM.PC] Routine 02/06/18 17:22 Peripheral IV Care [RC] . DIRECTED 02/06/18 20:49 UA W/MICROSCOPIC [URIN] Stat
[2018-02-06] MEDS ORDERED: HYDROmorphone 0.5 MG/0.5 ML SYRINGE IVPUSH ONE (18:25)
[2018-02-06] MEDS ORDERED: Metoclopramide 10 MG/2 ML SDV IVPUSH ONE (19:57)
[2018-02-06] MEDS ORDERED: Lactated Ringers 500 ML IV ONE (19:57)
[2018-02-06] MEDS ORDERED: Metoclopramide 10 MG/2 ML SDV ONE (20:24)
== END 2018-02-06 21:51 | disposition home or self-care (01) ==
LOC: JD.ED 16:55
DX: K52.9 Noninfective gastroenteritis and colitis, unspecified (principal); I10 Essential (primary) hypertension; Z79.899 Other long term (current) drug therapy
CPT/HCPCS: 36415; 80053; 81001; 83690; 83735; 85007; 85027; 86140; 96361; 96374; 96375; 96376; 99284; J1170; J1885; J2405; J2765; J3490; J7050; J7120

== ENCOUNTER 2018-09-08 09:36 | Emergency (ER) | payer BC, MEDICAID ==
[2018-09-08 09:48] VITALS: BP 139/89
[2018-09-08] MEDS ORDERED: Nitroglycerin 2% Oint 1 GM UD Packet TOP ONE (09:59)
[2018-09-08] MEDS ORDERED: Aspirin 81 MG Tab.Chew PO ONE (09:59)
[2018-09-08] MEDS ORDERED: Sodium Chloride 0.9% 10 ML Syringe FLUSH PRN (09:59)
--- NOTE | 2018-09-08 10:57 | EDM.PDOC ---
ED HPI GENERAL MEDICAL PROBLEM - General Chief Complaint: Chest Pain Stated Complaint: CHEST PAIN Time Seen by Provider: 09/08/18 09:52 Source of Information: Reports: Patient, RN Notes Reviewed - History of Present Illness INITIAL COMMENTS - FREE TEXT/NARRATIVE: 47-year-old male that had onset of chest discomfort about 90 minutes prior to arrival. He states he was just sitting having some breakfast when he started having achiness and heaviness anterior chest without radiation. He states he did become "sweaty" that is gone. The discomfort now is more mild but he still does have a mild ache left anterior chest. No abd. pain nausea or vomiting. He does not have history of hypertension or coronary artery disease but does have some family history of heart problems. He does not smoke. He has not been sick with cough fever or chills. Chest Pain Score (Numeric/FACES): 5 - Related Data Allergies Allergy/AdvReac Type Severity Reaction Status Date / Time No Known Allergies Allergy Verified 09/08/18 09:48 Home Meds: Home Meds Lisinopril 20 mg PO DAILY 01/31/17 [History] Omeprazole Magnesium [Prilosec Otc] 20 mg PO DAILY 01/31/17 [History] Modafinil [Provigil] 200 mg PO ASDIRECTED PRN 08/27/17 [History] Ondansetron [Zofran ODT] 4 mg PO Q6H PRN #20 tab.dis 02/06/18 [Rx] Past Medical History - Past Health History Medical/Surgical History: Denies Medical/Surgical History HEENT History: Reports: Other (See Below) Other HEENT History: partial Cardiovascular History: Reports: Hypertension Respiratory History: Reports: None Gastrointestinal History: Reports: GERD, Other (See Below) Other Gastrointestinal History: dysphagia Genitourinary History: Reports: Other (See Below) Other Genitourinary History: hydrocele, testicular mass, varicocele SUIT ATTENDANT History: Reports: None Musculoskeletal History: Reports: Back Pain, Chronic Psychiatric History: Reports: Anxiety Endocrine/Metabolic History: Reports: Obesity/BMI 30+ Hematologic History: Reports: None Immunologic History: Reports: None Oncologic (Cancer) History: Reports: None Dermatologic History: Reports: None - Past Surgical History Head Surgeries/Procedures: Reports: None HEENT Surgical History: Reports: None Respiratory Surgical History: Reports: None Male Surgical History: Reports: None Endocrine Surgical History: Reports: None Neurological Surgical History: Reports: C-Spine, Other (See Below) Other Neurological Surgeries/Procedures: c3c4 fusion Musculoskeletal Surgical History: Reports: Other (See Below) Other Musculoskeletal Surgeries/Procedures:: neck fusion Oncologic Surgical History: Reports: None Dermatological Surgical History: Reports: None Social & Family History - Family History Family Medical History: Noncontributory - Tobacco Use Smoking Status *Q: Never Smoker - Caffeine Use Caffeine Use: Reports: None - Living Situation & Occupation Living situation: Reports: Occupation: Employed ED ROS GENERAL - Review of Systems Review Of Systems: See Below Constitutional: Reports: Diaphoresis (states he got "sweaty for a short time this morning with the discomfort"). Denies: Fever, Chills HEENT: Denies: Sinus Problem, Throat Pain Respiratory: Denies: Shortness of Breath Cardiovascular: Reports: Chest Pain (gone), Lightheadedness, Palpitations GI/Abdominal: Denies: Abdominal Pain, Nausea, Vomiting Musculoskeletal: Denies: Neck Pain, Shoulder Pain, Arm Pain, Back Pain Skin: Denies: Rash Neurological: Reports: Dizziness (gone). Denies: Trouble Speaking, Difficulty Walking, Weakness ED EXAM, GENERAL - Physical Exam Exam: See Below General Appearance: Alert, No Apparent Distress Eye Exam: Bilateral Eye: PERRL Throat/Mouth: Normal Inspection, Normal Oropharynx Head: Atraumatic Neck: Supple Respiratory/Chest: No Respiratory Distress, Lungs Clear, Normal Breath Sounds Cardiovascular: Regular Rate, Rhythm GI/Abdominal: Soft, Non-Tender Back Exam: No: CVA Tenderness (L), CVA Tenderness (R) Extremities: Normal Inspection, Normal Range of Motion. No: Pedal Edema, Leg Pain, Increased Warmth, Redness Neurological: Alert, Oriented, No Motor/Sensory Deficits Skin Exam: Warm, Dry, Normal Color EKG INTERPRETATION EKG Date: 09/08/18 [place]: Normal P-Wave: Present QRS: Normal ST-T: Normal Course - Vital Signs Last Recorded V/S: Last Vital Signs Temp 97.3 F 09/08/18 09:44 Pulse 85 09/08/18 09:44 Resp 18 09/08/18 09:44 BP 139/89 09/08/18 09:44 Pulse Ox 98 09/08/18 09:44 - Orders/Labs/Meds Orders: Active Orders 24 hr Category Date Time Status Holter Monitor 48 Hours [RC] .PRN Care 09/08/18 15:02 Active Labs: Laboratory Tests 09/08/18 09/08/18 09/08/18 Range/Units 10:00 10:00 10:00 WBC 10.48 H (4.23-9.07) K/mm3 RBC 5.53 (4.63-6.08) M/mm3 Hgb 16.1 (13.7-17.5) gm/L Hct 45.7 (40.1-51.0) % MCV 82.6 (79.0-92.2) fl MCH 29.1 (25.7-32.2) pg MCHC 35.2 (32.2-35.5) g/dl RDW Std Deviation 40.5 (35.1-43.9) fL Plt Count 217 (163-337) K/mm3 MPV 9.5 (9.4-12.3) fl Neut % (Auto) 72.7 H (34.0-67.9) % Lymph % (Auto) 16.1 L (21.8-53.1) % Ble[place] % (Auto) 8.4 (5.3-12.2) % Eos % (Auto) 1.2 (0.8-7.0) Baso % (Auto) 0.2 (0.1-1.2) % Neut # (Auto) 7.61 H (1.78-5.38) K/mm3 Lymph # (Auto) 1.69 (1.32-3.57) K/mm3 Bleck[place] # (Auto) 0.88 H (0.30-0.82) K/mm3 Eos # (Auto) 0.13 (0.04-0.54) K/mm3 Baso # (Auto) 0.02 (0.01-0.08) K/mm3 Manual Slide Review Abnormal smear D-Dimer, Quantitative < 0.19 L (0.19-0.50) mg/L Sodium 137 (136-145) mEq/L Potassium 4.1 (3.5-5.1) mEq/L Chloride 102 (98-107) mEq/L Carbon Dioxide 23 (21-32) mEq/L Anion Gap 16.1 H (5-15) BUN 22 H (7-18) mg/dL Creatinine 1.2 (0.7-1.3) mg/dL Est Cr Clr Drug Dosing 72.04 mL/min Estimated GFR (MDRD) > 60 (>60) mL/min BUN/Creatinine Ratio 18.3 H (14-18) Glucose 145 H (74-106) mg/dL Calcium 8.9 (8.5-10.1) mg/dL Total Bilirubin 0.6 (0.2-1.0) mg/dL AST 21 (15-37) U/L ALT 59 (16-63) U/L Alkaline Phosphatase 78 (46-116) U/L Troponin I < 0.017 (0.00-0.056) ng/mL Total Protein 7.2 (6.4-8.2) g/dl Albumin 3.8 (3.4-5.0) g/dl Globulin 3.4 gm/dL Albumin/Globulin Ratio 1.1 (1-2) 09/08/18 Range/Units 12:23 WBC (4.23-9.07) K/mm3 RBC (4.63-6.08) M/mm3 Hgb (13.7-17.5) gm/L Hct (40.1-51.0) % MCV (79.0-92.2) fl MCH (25.7-32.2) pg MCHC (32.2-35.5) g/dl RDW Std Deviation (35.1-43.9) fL Plt Count (163-337) K/mm3 MPV (9.4-12.3) fl Neut % (Auto) (34.0-67.9) % Lymph % (Auto) (21.8-53.1) % Bleck[place] % (Auto) (5.3-12.2) % Eos % (Auto) (0.8-7.0) Baso % (Auto) (0.1-1.2) % Neut # (Auto) (1.78-5.38) K/mm3 Lymph # (Auto) (1.32-3.57) K/mm3 Bleckley # (Auto) (0.30-0.82) K/mm3 Eos # (Auto) (0.04-0.54) K/mm3 Baso # (Auto) (0.01-0.08) K/mm3 Manual Slide Review D-Dimer, Quantitative (0.19-0.50) mg/L Sodium (136-145) mEq/L Potassium (3.5-5.1) mEq/L Chloride (98-107) mEq/L Carbon Dioxide (21-32) mEq/L Anion Gap (5-15) BUN (7-18) mg/dL Creatinine (0.7-1.3) mg/dL Est Cr Clr Drug Dosing mL/min Estimated GFR (MDRD) (>60) mL/min BUN/Creatinine Ratio (14-18) Glucose (74-106) mg/dL Calcium (8.5-10.1) mg/dL Total Bilirubin (0.2-1.0) mg/dL AST (15-37) U/L ALT (16-63) U/L Alkaline Phosphatase (46-116) U/L Troponin I < 0.017 (0.00-0.056) ng/mL Total Protein (6.4-8.2) g/dl Albumin (3.4-5.0) g/dl Globulin gm/dL Albumin/Globulin Ratio (1-2) Meds: Medications Discontinued Medications Generic Name Dose Route Start Last Admin Trade Name Freq PRN Reason Stop Dose Admin Aspirin 324 mg 09/08/18 09:59 09/08/18 10:09 Aspirin PO 09/08/18 10:00 324 mg ONETIME ONE Administration Nitroglycerin 1 gm 09/08/18 09:59 09/08/18 10:09 Nitro-Bid 2% TOP 09/08/18 10:00 1 gm ONETIME ONE Administration Sodium Chloride 10 ml 09/08/18 09:59 09/08/18 10:09 Saline Flush FLUSH 10 ml ASDIRECTED PRN Administration Keep Vein Open - Re-Assessments/Exams Free Text/Narrative Re-Assessment/Exam: 09/09/18 14:27 initial trop was neg, 2nd trop also neg, CXR nl, labs all relatively normal, he was in NSR, no ectopy, did send him home with holter moniter. Departure - Departure Time of Disposition: 15:04 Disposition: Home, Self-Care 01 Condition: Fair Clinical Impression: Atypical chest pain, Dizziness Instructions: Nonspecific Chest Pain Referrals: Miguel Ángel Crandall PA [Primary Care Provider] - Forms: ED Department Discharge Additional Instructions: 48 hour Holter monitor, continue regular exercise, drink plenty of water to maintain hydration, healthy diet as best he can, research the Mediterranean diet. Eat a lot of fruit and vegetables, fish, nuts, cook with olive oil and live longer than we do with much less heart disease. Avoid flour and sugar foods as best you can. Follow-up with one of our clinic providers in about one week for results of Holter monitor, further evaluation and treatment as needed. Return to ED as needed if symptoms worsening in any way. - My Orders Last 24 Hours: My Active Orders 09/08/18 15:02 Holter Monitor 48 Hours [RC] .PRN - Assessment/Plan Last 24 Hours: My Active Orders 09/08/18 15:02 Holter Monitor 48 Hours [RC] .PRN
--- NOTE | 2018-09-08 13:06 | CR ---
Chest: Portable view of the chest was obtained. Comparison: Prior chest x-ray of 10/23/17. Heart size and mediastinum are normal. Lungs are clear. Prior cervical spine surgery is noted. Bony structures are otherwise grossly intact. Impression: 1. Nothing acute is seen on portable chest x-ray. Diagnostic code #2
== END 2018-09-08 15:19 | disposition home or self-care (01) ==
LOC: JD.ED 09:36
DX: R07.89 Other chest pain (principal); R42 Dizziness and giddiness; I10 Essential (primary) hypertension; K21.9 Gastro-esophageal reflux disease without esophagitis; E66.9 Obesity, unspecified; Z79.899 Other long term (current) drug therapy
CPT/HCPCS: 36415; 71045; 80053; 84484; 85025; 85379; 93005; 93225; 93226; 99285; A9270; 93010; 99284

== ENCOUNTER 2018-09-30 14:12 | Emergency (ER) | payer BC, MEDICAID ==
[2018-09-30 14:30] VITALS: BP 151/96
[2018-09-30] MEDS ORDERED: Orphenadrine 100 MG Tab.ER PO STA (14:54)
--- NOTE | 2018-09-30 14:57 | EDM.PDOC ---
ED HPI GENERAL MEDICAL PROBLEM - General Chief Complaint: Chest Pain Stated Complaint: CHEST PAIN Time Seen by Provider: 09/30/18 14:21 Source of Information: Reports: Patient, Old Records (ED 09/08/2018, Cardiolyte stress test 09/29/18), RN Notes Reviewed History Limitations: Reports: No Limitations - History of Present Illness INITIAL COMMENTS - FREE TEXT/NARRATIVE: Medical records indicate that the patient was seen in this ED on 09/08/2018 for left-sided chest pain. Workup included a D-dimer and 2 troponins, all of which returned undetectably low. The patient states that he has continued to have left -sided chest pain intermittently on a daily basis ever since then. He indicates that his pain is felt to the far left side of his chest, by the lateral aspect of his pectoralis muscle. The pain does not radiate anywhere. He states that it starts out as a sharp pain in the morning, then evolves to a pressure type pain that comes and goes for the remainder of the day. The typical duration is minutes, and is not related to his activity level - the patient states that he is feeling the pain here in the ED, despite just lying on the gurney. No pleuritic component. No associated nausea or sense of impending doom, although he states that he has felt dyspnea and diaphoresis. The patient states that he saw his PCP about his chest pain about one week ago, and that a cardiac stress test was ordered for yesterday, which the patient underwent. Dr. Hager noted that the patient reached 149 bpm, which is above the patient's 85% maximum predicted heart rate of 145 bpm. Results of the Cardiolite cardiac scan is read by Dr. Hager as: 1. No abnormality is seen on Cardiolite portion of cardiac stress test. Despite the negative stress test, for reasons not entirely clear, the patient was referred to the wax pot tender Dr. Cade, with whom the patient has an appointment to be seen 10/15/2018. The patient's PCP is Miguel Ángel Crandall. Treatments OPERATIONS SUPPORT ANALYST: Reports: Aspirin, Other Medication(s) Other Treatments OPERATIONS SUPPORT ANALYST: 81mg ASA and Aleve Left Chest Pain Score (Numeric/FACES): 4 - Related Data Allergies Allergy/AdvReac Type Severity Reaction Status Date / Time No Known Allergies Allergy Verified 09/30/18 14:17 Home Meds: Home Meds Lisinopril 20 mg PO DAILY 01/31/17 [History] Modafinil [Provigil] 200 mg PO ASDIRECTED PRN 08/27/17 [History] Aspirin 81 mg PO DAILY 09/30/18 [History] Lactobacillus Acidophilus [Probiotic] 1 each PO DAILY 09/30/18 [History] Naproxen Sodium [Aleve] 1 tab PO DAILY 09/30/18 [History] Orphenadrine [Norflex] 1 tab PO Q12H PRN #20 tab.er 09/30/18 [Rx] Pantoprazole [ProTONIX] 40 mg PO DAILY 09/30/18 [History] Past Medical History HEENT History: Reports: Impaired Vision Cardiovascular History: Reports: High Cholesterol, Hypertension Gastrointestinal History: Reports: GERD Musculoskeletal History: Reports: Back Pain, Chronic Psychiatric History: Reports: Anxiety, Depression Endocrine/Metabolic History: Reports: Obesity/BMI 30+ - Past Surgical History HEENT Surgical History: Reports: Oral Surgery Neurological Surgical History: Reports: C-Spine (C3-C4 ACDF) Social & Family History - Family History Family Medical History: Noncontributory Cardiac: Reports: CAD : Reports: Renal Disease/Insufficiency Oncologic: Reports: Breast - Tobacco Use Smoking Status *Q: Former Smoker Years of Tobacco use: 24 Packs/Tins Daily: 1 Month/Year Tobacco Last Used: Quit 2008 - Caffeine Use Caffeine Use: Reports: Coffee - Alcohol Use Alcohol Use History: No - Recreational Drug Use Recreational Drug Use: No - Living Situation & Occupation Living situation: Reports: , with Spouse, with Family (1 child) Occupation: Employed (driver helper) ED ROS GENERAL - Review of Systems Review Of Systems: ROS reveals no pertinent complaints other than HPI. ED EXAM, GENERAL - Physical Exam Exam: See Below Exam Limited By: No Limitations General Appearance: Alert, WD/WN, No Apparent Distress Eye Exam: Bilateral Eye: EOMI, Normal Inspection Ears: Normal External Exam, Hearing Grossly Normal Nose: Normal Inspection Throat/Mouth: Normal Inspection, Normal Lips, Normal Voice, No Airway Compromise Head: Atraumatic, Normocephalic Neck: Normal Inspection, Full Range of Motion Respiratory/Chest: No Respiratory Distress, Lungs Clear, Normal Breath Sounds, No Accessory Muscle Use, Chest Non-Tender (including to the lateral left pectoralis muscle), Other (Pain is not induced with compressing the hands together in front of his chest (flexing pectoralis muscles), however, his pain is relieved by crossing his left upper extremity across his chest) Cardiovascular: Normal Peripheral Pulses, Regular Rate, Rhythm, No Gallop, No JVD, No Murmur, No Rub Peripheral Pulses: 4+: Radial (L), Radial (R) GI/Abdominal: Normal Bowel Sounds, Soft, Non-Tender, No Organomegaly, No Distention, No Abnormal Bruit, No Mass (Male) Exam: Deferred Rectal (Males) Exam: Deferred Back Exam: Normal Inspection, Full Range of Motion, NT Extremities: Normal Inspection, Normal Range of Motion, No Pedal Edema, Normal Capillary Refill Neurological: Alert, Oriented, Normal Cognition, No Motor/Sensory Deficits Psychiatric: Normal Affect Skin Exam: Warm, Dry, Intact, Normal Color, No Rash Course - Vital Signs Last Recorded V/S: Last Vital Signs Temp 36.7 C 09/30/18 14:28 Pulse 82 09/30/18 14:28 Resp 14 09/30/18 14:28 BP 151/96 H 09/30/18 14:28 Pulse Ox 97 09/30/18 14:28 - Orders/Labs/Meds Meds: Medications Discontinued Medications Generic Name Dose Route Start Last Admin Trade Name Freq PRN Reason Stop Dose Admin Orphenadrine Citrate 100 mg 09/30/18 14:54 09/30/18 15:13 Norflex PO 09/30/18 14:55 100 mg ONETIME STA Administration - Re-Assessments/Exams Free Text/Narrative Re-Assessment/Exam: 09/30/18 14:55 Based on the patient's history and physical examination, his left-sided chest pain is most likely pectoralis muscle related. It is not cardiac, as his presentation is not anginal, and his Cardiolite stress test was negative yesterday. It is not due to a PE, as it is not pleuritic, and his D-dimer was undetectably low on 09/08/2018. Patient is already on a baby aspirin and 2 tablets of Aleve every day, therefore I'm going to recommend that we give a trial of a muscle relaxant. The patient will be started on Norflex here today, and I will prescribe a 10-day course. Departure - Departure Time of Disposition: 14:58 Disposition: Home, Self-Care 01 Condition: Good Clinical Impression: Musculoskeletal chest pain - Discharge Information *PRESCRIPTION DRUG MONITORING PROGRAM REVIEWED*: Not Applicable *COPY OF PRESCRIPTION DRUG MONITORING REPORT IN PATIENT MARGIE: Not Applicable Prescriptions: Orphenadrine [Norflex] 1 tab PO Q12H PRN #20 tab.er PRN Reason: Muscle Spasm Instructions: Nonspecific Chest Pain, [id number] Referrals: Miguel Ángel Crandall PA [Primary Care Provider] - Reinaldo Cade MD [Ordering Only Provider] - Forms: ED Department Discharge Additional Instructions: You were seen in the emergency room for recurrent left-sided chest pain. Prior medical records, including from your ER visit 09/08/2018, as well as from your Cardiolite stress test yesterday, were reviewed. Based on your history, physical examination, and prior tests, the cause of your chest pain is most likely musculoskeletal in etiology. It is not due to your heart. You have been started on the muscle relaxant Norflex. A prescription for Norflex has been sent to the [facility], located just south and across the [address] from [facility]. Take one tablet of Norflex every 12 hours, as prescribed. In addition to Norflex, you may continue to take [id number] Aleve, with food, and a daily baby aspirin. Follow-up with your PCP, Miguel Ángel Crandall, as needed. If any other problems, please do not hesitate to return to the ER.
== END 2018-09-30 15:15 | disposition home or self-care (01) ==
LOC: JD.ED 14:12
DX: R07.89 Other chest pain (principal); I10 Essential (primary) hypertension; E78.00 Pure hypercholesterolemia, unspecified; K21.9 Gastro-esophageal reflux disease without esophagitis; F41.9 Anxiety disorder, unspecified; F32.9 Major depressive disorder, single episode, unspecified; Z79.82 Long term (current) use of aspirin; Z87.891 Personal history of nicotine dependence; Z79.899 Other long term (current) drug therapy
CPT/HCPCS: 36415; 84484; 99284; A9270

== ENCOUNTER 2019-06-04 06:57 | Day surgery (SDC) | payer BC, MEDICAID ==
--- NOTE | 2019-06-04 07:34 | PCM.PREANE ---
Preanesthetic Assessment - Procedure Proposed Procedure: screening colonoscopy - Anesthesia/Transfusion/Family Hx Anesthesia History: Prior Anesthesia Without Reaction Family History of Anesthesia Reaction: No Transfusion History: No Prior Transfusion(s) Intubation History: Unknown - Review of Systems General: No Symptoms Pulmonary: No Symptoms Cardiovascular: No Symptoms Gastrointestinal: No Symptoms Neurological: Tingling (left big toe ) Other: Reports: None - Physical Assessment NPO Status Date: 06/04/19 NPO Status Time: 04:00 (prep ) Vital Signs: 97.7 temp 71 hr 16 rr 151/90 96% 0 pain Height: 1.73 m ASA Class: 3 Mental Status: Alert & Oriented x3 Airway Class: Mallampati = 1 Dentition: Reports: Missing Tooth/Teeth (left upper tooth ) Thyro-Mental Finger Breadths: 3 Mouth Opening Finger Breadths: 5 ROM/Head Extension: Limited/Partial (history of neck fusion) Lungs: Clear to Auscultation, Normal Respiratory Effort Cardiovascular: Regular Rate, Regular Rhythm - Allergies Allergies/Adverse Reactions: Allergies Allergy/AdvReac Type Severity Reaction Status Date / Time meloxicam [From MobCignifi] Allergy Irritabilit Verified 06/03/19 18:25 y - Blood Blood Available: No - Anesthesia Plan Pre-Op Medication Ordered: None - Acknowledgements Anesthesia Type Planned: MAC Pt an Appropriate Candidate for the Planned Anesthesia: Yes Alternatives and Risks of Anesthesia Discussed w Pt/Guardian: Yes Pt/Guardian Understands and Agrees with Anesthesia Plan: Yes PreAnesthesia Questionnaire - Past Health History Medical/Surgical History: Denies Medical/Surgical History HEENT History: Reports: Other (See Below) Other HEENT History: partial Cardiovascular History: Reports: High Cholesterol, Hypertension, Other (See Below) Other Cardiovascular History: Abnormal stress test 09/29/2108 states was told has an irregular heart rhythm Respiratory History: Reports: Sleep Apnea Gastrointestinal History: Reports: Gastritis, GERD, Other (See Below) Other Gastrointestinal History: dysphagia Genitourinary History: Reports: Other (See Below) Other Genitourinary History: hydrocele, testicular mass, varicocele END WORKER History: Reports: None Musculoskeletal History: Reports: Arthritis, Back Pain, Chronic Other Musculoskeletal History: lateral epicondylitis, forearm pain, hip pain, bilateral rotator cuff impingments, myofasical pain, left elbow tendinitis, left shoulder pain Neurological History: Reports: Other (See Below) Other Neuro History: lumbar disc degeneration, neck surgery Psychiatric History: Reports: Anxiety, Depression Endocrine/Metabolic History: Reports: Obesity/BMI 30+ Hematologic History: Reports: None Immunologic History: Reports: None Oncologic (Cancer) History: Reports: None Dermatologic History: Other Dermatologic History: excessive sweating, rash - Infectious Disease History Infectious Disease History: Reports: None - Past Surgical History Head Surgeries/Procedures: Reports: None HEENT Surgical History: Reports: Oral Surgery Cardiovascular Surgical History: Reports: None Respiratory Surgical History: Reports: None GI Surgical History: Reports: EGD Female Surgical History: Reports: None Male Surgical History: Reports: None Endocrine Surgical History: Reports: None Neurological Surgical History: Reports: C-Spine, Other (See Below) Other Neurological Surgeries/Procedures: [id number] fusion, L3L4 fusion Musculoskeletal Surgical History: Reports: Other (See Below) Other Musculoskeletal Surgeries/Procedures:: neck fusion Oncologic Surgical History: Reports: None Dermatological Surgical History: Reports: None - SUBSTANCE USE Smoking Status *Q: Former Smoker Recreational Drug Use History: No - HOME MEDS Home Medications: Home Meds Lisinopril 20 mg PO DAILY 01/31/17 [History] Lactobacillus Acidophilus [Probiotic] 1 each PO DAILY 09/30/18 [History] Pantoprazole [ProTONIX] 40 mg PO DAILY 09/30/18 [History] Cholecalciferol (Vitamin D3) [Vitamin D3] 1,000 unit PO DAILY 06/03/19 [History] Clobetasol [Clobetasol 0.05%] 1 dose TOP BID PRN 06/03/19 [History] Cyclobenzaprine [Flexeril] 10 mg PO Q8H PRN 06/03/19 [History] FLUoxetine HCl [Prozac] 40 mg PO DAILY 06/03/19 [History] Polyethylene Glycol 3350 [MiraLAX] 1 dose PO DAILY 06/03/19 [History] Sennosides [Senna] 8.6 mg PO BID PRN 06/03/19 [History] oxyCODONE HCl [Oxycodone HCl] 10 mg PO BID PRN 06/03/19 [History] traMADol [Ultram] 50 mg PO Q6H PRN 06/03/19 [History] - CURRENT (IN HOUSE) MEDS Current Meds: Current Medications Lactated Ringer's (Ringers, Lactated) 1,000 mls @ 125 mls/hr IV ASDIRECTED JERALD Stop: 06/04/19 23:00 Lidocaine/Sodium Bicarbonate (Buffered Lidocaine 1% In Ns 8.4%) 0.25 ml IDERM ONETIME PRN PRN Reason: Prior to IV Start Stop: 06/04/19 23:00 Sodium Chloride (Saline Flush) 10 ml FLUSH ASDIRECTED PRN PRN Reason: Keep Vein Open Stop: 06/04/19 23:00
[2019-06-04] MEDS ORDERED: Propofol 200 MG/20 ML SDV ONE ×2 (07:43→08:23)
[2019-06-04] MEDS ORDERED: Lidocaine 1% 4 ML ONE (07:44)
--- NOTE | 2019-06-04 09:01 | PCM48HPAN ---
Post Anesthesia Note - EVALUATION WITHIN 48HRS OF ANESTHETIC Vital Signs in Normal Range: Yes Patient Participated in Evaluation: Yes Respiratory Function Stable: Yes Airway Patent: Yes Cardiovascular Function Stable: Yes Hydration Status Stable: Yes Pain Control Satisfactory: Yes Nausea and Vomiting Control Satisfactory: Yes Mental Status Recovered: Yes Vital Signs: Last Vital Signs Temp 36.5 C 06/04/19 07:00 Pulse 71 06/04/19 07:00 Resp 16 06/04/19 07:00 BP 151/90 H 06/04/19 07:00 Pulse Ox 96 06/04/19 07:00 - COMMENTS/OBSERVATIONS Free Text/Narrative:: vitals: 139/91, 95 spo2, 84, 16, 96.8
[2019-06-04 09:33] VITALS: BP 130/81; PULSE 69
--- NOTE | 2019-06-04 11:01 | PCM.PRNOTE ---
- Free Text/Narrative Note: Date: 06/04/2019 Procedure: Screening Colonoscopy Endoscopist: Shukri Higgins MD Findings: Two subcentimeter pedunculated polyps removed with hot snare. Prep was decent. Detailed Report: The patient was taken to the GI suite and placed in left lateral decubitus position. Timeout was performed. Monitored sedation was initiated. Visual inspection of the anus was normal. Digital rectal exam was unremarkable, the prostate felt normal in size and contour. The colonoscope was advanced all the way to the ileocecal valve. Prep was decent, with a few areas obscured with murky thin fluid. On slow withdrawal of the colonoscope, all mucosal surfaces were inspected carefully. Near the hepatic flexure and proximal transverse colon, 2 subcentimeter pedunculated polyps were identified and removed using the hot snare. Specimens were successfully collected and sent for pathology. Biopsy sites were hemostatic on inspection. No other lesions were identified. No diverticular disease. No hemorrhoidal disease noted on retroflexion in the rectum. The patient tolerated the procedure well. Shukri Higgins MD General Surgery
== END 2019-06-04 09:44 | disposition home or self-care (01) ==
LOC: JD.SDS 06:57
PROVIDERS: ATTEND Surgery
DX: Z12.11 Encounter for screening for malignant neoplasm of colon (principal); D12.3 Benign neoplasm of transverse colon; I10 Essential (primary) hypertension; E78.5 Hyperlipidemia, unspecified; K21.9 Gastro-esophageal reflux disease without esophagitis; F41.8 Other specified anxiety disorders; G47.33 Obstructive sleep apnea (adult) (pediatric); M19.90 Unspecified osteoarthritis, unspecified site; Z88.6 Allergy status to analgesic agent; Z87.891 Personal history of nicotine dependence; Z79.891 Long term (current) use of opiate analgesic; Z79.899 Other long term (current) drug therapy
CPT/HCPCS: 45385; J2001; J2704; J7120; 00812

== ENCOUNTER 2021-01-02 12:05 | Emergency (ER) | payer BC ==
[2021-01-02 12:43] VITALS: BP 130/73; PULSE 93
[2021-01-02] MEDS ORDERED: Sodium Chloride 0.9% 10 ML Syringe FLUSH PRN (13:04)
--- NOTE | 2021-01-02 13:43 | CR ---
Chest: Portable view of the chest was obtained. Comparison: Prior chest x-ray of 09/08/18. Heart size and mediastinum are normal. Lungs are clear with no acute parenchymal change. Bony structures show nothing acute. Impression: 1. Nothing acute is seen on portable chest x-ray. Diagnostic code #1
--- NOTE | 2021-01-02 13:59 | CT ---
Head CT Technique: Multiple axial sections through the brain were obtained. Intravenous contrast was not utilized. Reconstructed coronal and sagittal images were obtained. Comparison: No prior intracranial imaging is available. Findings: Ventricles along with basal cisterns and sulci over the convexities are within normal limits for the patient's age. No abnormal parenchymal densities are seen. No evidence of intracranial hemorrhage is seen. No midline shift or mass-effect is seen. Bone window settings were reviewed. No acute calvarial abnormality is appreciated. Visualized mastoid and paranasal sinuses show nothing acute. Incidental note of minimal mucosal thickening seen within the right anterior ethmoid sinus. Internal auditory canals are symmetric. Impression: 1. Nothing acute is seen on noncontrast head CT study. Diagnostic code #2
--- NOTE | 2021-01-02 15:53 | EDM.PDOC ---
ED HPI GENERAL MEDICAL PROBLEM - General Chief Complaint: Neurological Problem Stated Complaint: LIGHT HEADED DIZZY, COVID POS Time Seen by Provider: 01/02/21 12:38 Source of Information: Reports: Patient, RN Notes Reviewed History Limitations: Reports: No Limitations - History of Present Illness INITIAL COMMENTS - FREE TEXT/NARRATIVE: Patient is a 50-year-old male presenting to the emergency department with complaints of ongoing occasional cough as well as intermittent dizziness with a known diagnosis of COVID-19. He was diagnosed 5 days ago, however states that he has had symptoms for about 9 days now. Yesterday he went out for a walk and became winded. Since that time he has been having some intermittent dizziness. Does not describe it as a sensation of the room spinning but more lightheadedness. It does not worsen when he stands. Has had no nausea, vomiting, or diarrhea. Denies any headache or chest pain. States that he feels may be a little short of breath at rest but that is not difficult for him to breathe. Early on in his sickness, he did have some fevers, but states it has been a number of days since he has had any fever or chills. He did receive monoclonal antibody infusion 5 days ago. - Related Data Allergies Allergy/AdvReac Type Severity Reaction Status Date / Time meloxicam [From Mobic] AdvReac Irritabilit Verified 01/02/21 12:43 y Home Meds: Home Meds Lisinopril 20 mg PO DAILY 01/31/17 [History] Lactobacillus Acidophilus [Probiotic] 1 each PO DAILY 09/30/18 [History] Pantoprazole [ProTONIX] 40 mg PO DAILY 09/30/18 [History] Cholecalciferol (Vitamin D3) [Vitamin D3] 1,000 unit PO DAILY 06/03/19 [History] Clobetasol [Clobetasol 0.05%] 1 dose TOP BID PRN 06/03/19 [History] Cyclobenzaprine [Flexeril] 10 mg PO Q8H PRN 06/03/19 [History] FLUoxetine HCl [Prozac] 40 mg PO DAILY 06/03/19 [History] Sennosides [Senna] 8.6 mg PO BID PRN 06/03/19 [History] oxyCODONE HCl [Oxycodone HCl] 10 mg PO BID PRN 06/03/19 [History] polyethylene glycoL 3350 [MiraLAX] 1 dose PO DAILY 06/03/19 [History] traMADol [Ultram] 50 mg PO Q6H PRN 06/03/19 [History] Past Medical History - Past Health History Medical/Surgical History: Denies Medical/Surgical History HEENT History: Reports: Other (See Below) Other HEENT History: partial Cardiovascular History: Reports: High Cholesterol, Hypertension, Other (See Below) Other Cardiovascular History: Abnormal stress test 09/29/2108 states was told has an irregular heart rhythm Respiratory History: Reports: Sleep Apnea Gastrointestinal History: Reports: Gastritis, GERD, Other (See Below) Other Gastrointestinal History: dysphagia Genitourinary History: Reports: Other (See Below) Other Genitourinary History: hydrocele, testicular mass, varicocele [employer] History: Reports: None Musculoskeletal History: Reports: Arthritis, Back Pain, Chronic Other Musculoskeletal History: lateral epicondylitis, forearm pain, hip pain, bilateral rotator cuff impingments, myofasical pain, left elbow tendinitis, left shoulder pain Neurological History: Reports: Other (See Below) Other Neuro History: lumbar disc degeneration, neck surgery Psychiatric History: Reports: Anxiety, Depression Endocrine/Metabolic History: Reports: Obesity/BMI 30+ Hematologic History: Reports: None Immunologic History: Reports: None Oncologic (Cancer) History: Reports: None Dermatologic History: Reports: None Other Dermatologic History: excessive sweating, rash - Infectious Disease History Infectious Disease History: Reports: None - Past Surgical History Head Surgeries/Procedures: Reports: None HEENT Surgical History: Reports: Oral Surgery Cardiovascular Surgical History: Reports: None Respiratory Surgical History: Reports: None GI Surgical History: Reports: EGD Male Surgical History: Reports: None Endocrine Surgical History: Reports: None Neurological Surgical History: Reports: C-Spine, Other (See Below) Other Neurological Surgeries/Procedures: [id number] fusion, L3L4 fusion Musculoskeletal Surgical History: Reports: Other (See Below) Other Musculoskeletal Surgeries/Procedures:: neck fusion Oncologic Surgical History: Reports: None Dermatological Surgical History: Reports: None Social & Family History - Family History Family Medical History: No Pertinent Family History Cardiac: Reports: CAD : Reports: Renal Disease/Insufficiency Oncologic: Reports: Breast - Tobacco Use Tobacco Use Status *Q: Never Tobacco User - Caffeine Use Caffeine Use: Reports: Coffee - Recreational Drug Use Recreational Drug Use: No - Living Situation & Occupation Living situation: Reports: Occupation: Employed (hyster driver) ED ROS GENERAL - Review of Systems Review Of Systems: See Below Constitutional: Reports: Fatigue. Denies: Fever, Chills HEENT: Reports: No Symptoms Respiratory: Reports: Shortness of Breath, Cough. Denies: Pleuritic Chest Pain Cardiovascular: Reports: Dyspnea on Exertion, Lightheadedness. Denies: Chest Pain, Syncope Endocrine: Reports: No Symptoms GI/Abdominal: Reports: No Symptoms : Reports: No Symptoms Musculoskeletal: Reports: No Symptoms Skin: Reports: No Symptoms Neurological: Reports: Dizziness. Denies: Confusion, Headache Psychiatric: Reports: No Symptoms Hematologic/Lymphatic: Reports: No Symptoms Immunologic: Reports: No Symptoms ED EXAM, NEURO - Physical Exam Exam: See Below Exam Limited By: No Limitations General Appearance: Alert, WD/WN, No Apparent Distress Eye Exam: Bilateral Eye: Normal Inspection Head Exam: Atraumatic, Normocephalic Neck: Normal Inspection, Supple, Non-Tender, Full Range of Motion Respiratory/Chest: No Respiratory Distress, Lungs Clear, Normal Breath Sounds, No Accessory Muscle Use, Chest Non-Tender Cardiovascular: Normal Peripheral Pulses, Regular Rate, Rhythm, No Edema, No Gallop, No JVD, No Murmur, No Rub Neurological: Alert, Normal Mood/Affect, Normal Dorsiflexion, CN II-XII Intact, Normal Plantar Flexion, Normal Gait, Normal Reflexes, No Motor/Sensory Deficits, Oriented x 3 Extremities: Normal Inspection, Normal Range of Motion, Non-Tender, No Pedal Edema, Normal Capillary Refill Psychiatric: Normal Affect, Normal Mood Skin Exam: Warm, Dry, Intact, Normal Color, No Rash #1 Interpretation EKG Date: 01/02/21 Time: 13:16 Rhythm: NSR Rate (Beats/Min): 87 [place]: Normal P-Wave: Present QRS: Normal ST-T: Normal QT: Normal EKG Interpretation Comments: Sinus rhythm at 87/min RSR V1-normal variant Early R wave transition-consider right ventricular hypertrophy versus septal h ypertrophy T wave inversion V3 and flattening V4 through V6-nonspecific EKG interpreted by Dr. Bailey INGRAM Course - Vital Signs Last Recorded V/S: Last Vital Signs Temp 97.3 F 01/02/21 12:39 Pulse 93 01/02/21 12:39 Resp 18 01/02/21 12:39 BP 130/73 01/02/21 12:39 Pulse Ox 96 01/02/21 12:39 - Orders/Labs/Meds Orders: Active Orders 24 hr Category Date Time Status Peripheral IV Insertion Adult [OM.PC] Stat Oth 01/02/21 13:05 Ordered Labs: Laboratory Tests 01/02/21 01/02/21 01/02/21 Range/Units 13:35 13:35 13:35 WBC 8.52 (4.23-9.07) K/mm3 RBC 5.18 (4.63-6.08) M/mm3 Hgb 14.9 (13.7-17.5) gm/dl Hct 41.5 (40.1-51.0) % MCV 80.1 (79.0-92.2) fl MCH 28.8 (25.7-32.2) pg MCHC 35.9 H (32.2-35.5) g/dl RDW Std Deviation 37.2 (35.1-43.9) fL Plt Count 229 (163-337) K/mm3 MPV 9.7 (9.4-12.3) fl Neut % (Auto) 63.6 (34.0-67.9) % Lymph % (Auto) 23.6 (21.8-53.1) % [place] % (Auto) 6.9 (5.3-12.2) % Eos % (Auto) 2.2 (0.8-7.0) Baso % (Auto) 0.5 (0.1-1.2) % Neut # (Auto) 5.42 H (1.78-5.38) K/mm3 Lymph # (Auto) 2.01 (1.32-3.57) K/mm3 [place] # (Auto) 0.59 (0.30-0.82) K/mm3 Eos # (Auto) 0.19 (0.04-0.54) K/mm3 Baso # (Auto) 0.04 (0.01-0.08) K/mm3 Manual Slide Review Normal smear D-Dimer, Quantitative 0.26 (0.19-0.50) mg/L Sodium 147 H (136-145) mEq/L Potassium 3.9 (3.5-5.1) mEq/L Chloride 107 (98-107) mEq/L Carbon Dioxide 29 (21-32) mEq/L Anion Gap 14.9 (5-15) BUN 16 (7-18) mg/dL Creatinine 1.0 (0.7-1.3) mg/dL Est Cr Clr Drug Dosing 83.60 mL/min Estimated GFR (MDRD) > 60 (>60) mL/min BUN/Creatinine Ratio 16.0 (14-18) Glucose 201 H (70-99) mg/dL Calcium 9.0 (8.5-10.1) mg/dL Total Bilirubin 0.4 (0.2-1.0) mg/dL AST 28 (15-37) U/L ALT 67 H (16-63) U/L Alkaline Phosphatase 83 (46-116) U/L Troponin I < 0.017 (0.00-0.056) ng/mL C-Reactive Protein < 0.2 (<1.0) mg/dL Total Protein 7.3 (6.4-8.2) g/dl Albumin 3.9 (3.4-5.0) g/dl Globulin 3.4 gm/dL Albumin/Globulin Ratio 1.2 (1-2) Meds: Medications Discontinued Medications Generic Name Dose Route Start Last Admin Trade Name Freq PRN Reason Stop Dose Admin Sodium Chloride 10 ml 01/02/21 13:04 01/02/21 13:44 Sodium Chloride 0.9% 10 Ml Syringe FLUSH 10 ml ASDIRECTED PRN Administration Keep Vein Open - Re-Assessments/Exams Free Text/Narrative Re-Assessment/Exam: 01/02/21 15:49 Patient's work-up is grossly unremarkable. D-dimer is normal, troponin is undetectable, CRP is undetectable, head CT, chest x-ray, and EKG are all normal. Recommend the patient go home and continue to rest. Ensure adequate fluid intake discussed return precautions. Discharge instructions as documented. Departure - Departure Time of Disposition: 15:52 Disposition: Home, Self-Care 01 Condition: Good Clinical Impression: Dizziness, COVID-19 - Discharge Information *PRESCRIPTION DRUG MONITORING PROGRAM REVIEWED*: No *COPY OF PRESCRIPTION DRUG MONITORING REPORT IN PATIENT MARGIE: No Instructions: COVID-19, Dizziness Referrals: PCP,None [Primary Care Provider] - Forms: ED Department Discharge Additional Instructions: You were seen in the emergency department today for evaluation with regards to intermittent dizziness as well as ongoing cough with a known diagnosis of COVID- 19. Concluded blood work, EKG of your heart, chest x-ray, and head CT. Results of your work-up were found to be normal. As we discussed, symptoms are likely related to the disease process of COVID-19. Recommended to go home and rest. Ensure you are taking an adequate amount of fluid. If you should experience any worsening symptoms, please do not hesitate to return to the emergency department for reevaluation. Sepsis Event Note (ED) - Evaluation Sepsis Screening Result: No Definite Risk - Focused Exam Vital Signs: Vital Signs Temp Pulse Resp BP Pulse Ox 01/02/21 12:39 97.3 F 93 18 130/73 96 - My Orders Last 24 Hours: My Active Orders 01/02/21 13:05 Peripheral IV Insertion Adult [OM.PC] Stat - Assessment/Plan Last 24 Hours: My Active Orders 01/02/21 13:05 Peripheral IV Insertion Adult [OM.PC] Stat
== END 2021-01-02 16:10 | disposition home or self-care (01) ==
LOC: JD.ED 12:05
DX: U07.1 COVID-19 (principal); R42 Dizziness and giddiness; E78.00 Pure hypercholesterolemia, unspecified; I10 Essential (primary) hypertension; K21.9 Gastro-esophageal reflux disease without esophagitis; E66.9 Obesity, unspecified; Z68.34 Body mass index [BMI] 34.0-34.9, adult; Z88.8 Allergy status to other drugs, medicaments and biological substances; Z79.899 Other long term (current) drug therapy
CPT/HCPCS: 36415; 70450; 70450-26; 71045; 71045-26; 80053; 84484; 85025; 85379; 86140; 93005; 93010; 99283; 99284-25

== ENCOUNTER 2024-12-13 20:40 | Emergency (ER) | payer BC, OTHER ==
[2024-12-13 20:58] LABS: BASOPHILS ABSOLUTE AUTO 0.1 K/mm3 (0.0-0.2); BASOPHILS PERCENT AUTO 0.9 % (0.0-1.0); EOSINOPHILS ABSOLUTE AUTO 0.3 K/mm3 (0.0-0.4); EOSINOPHILS PERCENT AUTO 2.9 % (0.0-6.0); HEMATOCRIT 46.9 % (42.0-52.0); IMMATURE GRAN ABSOLUTE AUTO 0.04 K/mm3 (0.00-0.05); IMMATURE GRAN PERCENT AUTO 0.4 % (0.0-0.4); LYMPHOCYTES ABSOLUTE AUTO 2.8 K/mm3 (1.0-4.8); LYMPHOCYTES PERCENT AUTO 30.3 % (24.0-44.0); MEAN CORPUSCULAR HEMOGLOBIN 28.4 pg (28.0-32.0); MEAN CORPUSCULAR HGB CONC 34.1 g/dl (32.0-36.0); MEAN CORPUSCULAR VOLUME 83.2 fl (83.0-99.0); MEAN PLATELET VOLUME 9.7 fl (9.4-12.4); MONOCYTES ABSOLUTE AUTO 0.7 K/mm3 (0.0-0.8); MONOCYTES PERCENT AUTO 7.9 % (0.0-8.0); NEUTROPHILS ABSOLUTE AUTO 5.3 K/mm3 (1.8-7.7); NEUTROPHILS PERCENT AUTO 57.6 % (41.0-71.0); PLATELET COUNT,PLT 209 K/mm3 (150-400); RED BLOOD CELL COUNT 5.64 M/mm3 (4.52-5.90); WHITE BLOOD CELL COUNT,WBC 9.11 K/mm3 (3.9-11.3)
[2024-12-13] MEDS ORDERED: Sodium Chloride 0.9% 10 ML Syringe FLUSH PRN (21:14)
[2024-12-13 21:20] LABS: A/G RATIO 1.2 (1-2); ALANINE AMINOTRANSFERASE,ALT 44 U/L (16-63); ALKALINE PHOSPHATASE 78 U/L (46-116); ANION GAP 11.7 (5-15); ASPARTATE AMNIOTRANSFERASE,AST 25 U/L (15-37); BILIRUBIN TOTAL 0.3 mg/dL (0.2-1.0); BLOOD UREA NITROGEN,BUN 28 mg/dL (7-18); BUN/CREATININE RATIO 31.1 (14-18); CALCIUM 9.2 mg/dL (8.5-10.1); CARBON DIOXIDE,CO2 29 mEq/L (21-32); CHLORIDE,CL 103 mEq/L (98-107); CREATININE 0.9 mg/dL (0.7-1.3); EST CRCL DRUG DOSING (CG) 76.74 mL/min; ESTIMATED GFR 100 mL/min (>60); GLUCOSE RANDOM 125 mg/dL (70-99); LIPASE 25 U/L (16-77); POTASSIUM,K 3.7 mEq/L (3.5-5.1); PROTEIN TOTAL,TP 7.4 g/dl (6.4-8.2); SODIUM,NA 140 mEq/L (136-145)
[2024-12-13 21:23] LABS: TROPONIN I HIGH SENSITIVITY < 4 pg/mL (<=76)
[2024-12-13] MEDS: Sodium Chloride 0.9% 1,000 ML IV ONE (21:23)
[2024-12-13] MEDS: Morphine 4 MG/ML Syringe IVPUSH ONE (21:24)
[2024-12-13] MEDS: Iopamidol 755 Mg/ML 100 ML Bottle IVPUSH ONE (21:55)
[2024-12-13] MEDS: Sodium Chloride 0.9% 45 ML IV SCH (21:55)
[2024-12-13] MEDS: Sodium Chloride 0.9% 10 ML Syringe FLUSH PRN (21:55)
[2024-12-13] MEDS: HYDROmorphone 1 MG/ML Syringe IVPUSH ONE (22:38)
[2024-12-13 23:31] LABS: APPEARANCE,URINE CLEAR (Clear); BILIRUBIN,URINE NEGATIVE (Negative); COLOR,URINE LIGHT YELLOW (Yellow); GLUCOSE,URINE 2+ (Negative); KETONES,URINE NEGATIVE (Negative); LEUKOCYTE ESTERASE,URINE NEGATIVE (Negative); NITRITE,URINE NEGATIVE (Negative); OCCULT BLOOD,URINE NEGATIVE (Negative); PROTEIN,URINE NEGATIVE (Negative); UROBILINOGEN,URINE 0.2 (0.2-1.0)
[2024-12-13] MEDS: Alum Hydrox/Mag Hydrox/Simeth 30 ML, Lidocaine 2% 15 ML PO ONE (23:32)
[2024-12-13] MEDS: Famotidine 20 MG Tab PO ONE (23:32)
[2024-12-14 00:51] VITALS: BP 142/81; PULSE 85
== END 2024-12-14 01:00 | disposition home or self-care (01) ==
LOC: JD.ED 20:40
DX: R07.9 Chest pain, unspecified (principal); R51.9 Headache, unspecified; I10 Essential (primary) hypertension; E78.00 Pure hypercholesterolemia, unspecified; K21.9 Gastro-esophageal reflux disease without esophagitis; E11.9 Type 2 diabetes mellitus without complications; E66.9 Obesity, unspecified; Z86.16 Personal history of COVID-19; Z79.899 Other long term (current) drug therapy; Z88.8 Allergy status to other drugs, medicaments and biological substances; Z68.41 Body mass index [BMI] 40.0-44.9, adult
CPT/HCPCS: 36415; 70450; 71275; 80053; 81003; 83690; 84484; 85025; 93005; 96361; 96374; 96375; 99285; A9270; J1171; J2270; J7030; Q9967; 93010; 99284

== ENCOUNTER 2024-12-16 13:01 | Observation (INO) | payer BC ==
[2024-12-16] MEDS ORDERED: Sodium Chloride 0.9% 10 ML Syringe FLUSH PRN (13:11)
[2024-12-16] MEDS: Metoprolol Tartrate 5 MG/5 ML SDV IV SCH (13:20)
[2024-12-16 13:31] LABS: BASOPHILS ABSOLUTE AUTO 0.1 K/mm3 (0.0-0.2); BASOPHILS PERCENT AUTO 0.6 % (0.0-1.0); EOSINOPHILS ABSOLUTE AUTO 0.2 K/mm3 (0.0-0.4); EOSINOPHILS PERCENT AUTO 1.7 % (0.0-6.0); IMMATURE GRAN ABSOLUTE AUTO 0.04 K/mm3 (0.00-0.05); IMMATURE GRAN PERCENT AUTO 0.4 % (0.0-0.4); LYMPHOCYTES ABSOLUTE AUTO 2.3 K/mm3 (1.0-4.8); LYMPHOCYTES PERCENT AUTO 22.9 % (24.0-44.0); MEAN PLATELET VOLUME 9.9 fl (9.4-12.4); MONOCYTES ABSOLUTE AUTO 0.5 K/mm3 (0.0-0.8); MONOCYTES PERCENT AUTO 5.0 % (0.0-8.0); NEUTROPHILS ABSOLUTE AUTO 7.0 K/mm3 (1.8-7.7); NEUTROPHILS PERCENT AUTO 69.4 % (41.0-71.0); NRBC ABSOLUTE 0.00 (0.00-0.02); NRBC PERCENT 0.0 % (0.0-0.2); PLATELET COUNT,PLT 221 K/mm3 (150-400); RED BLOOD CELL COUNT 5.89 M/mm3 (4.52-5.90); WHITE BLOOD CELL COUNT,WBC 10.06 K/mm3 (3.9-11.3)
[2024-12-16] MEDS ORDERED: Naloxone 0.4 MG/ML SDV IVPUSH PRN ×2 (13:41→15:31)
[2024-12-16 14:02] LABS: A/G RATIO 1.2 (1-2); ALANINE AMINOTRANSFERASE,ALT 50.0 U/L (16-63); ASPARTATE AMNIOTRANSFERASE,AST 27.0 U/L (15-37); BILIRUBIN TOTAL 0.4 mg/dL (0.2-1.0); BLOOD UREA NITROGEN,BUN 25.0 mg/dL (7-18); CARBON DIOXIDE,CO2 25.0 mEq/L (21-32); CHLORIDE,CL 101.0 mEq/L (98-107); CREATININE 1.1 mg/dL (0.7-1.3); EST CRCL DRUG DOSING (CG) 72.55 mL/min; ESTIMATED GFR 79.0 mL/min (>60); GLUCOSE RANDOM 232.0 mg/dL (70-99); POTASSIUM,K 3.5 mEq/L (3.5-5.1); PROTEIN TOTAL,TP 7.6 g/dl (6.4-8.2); SODIUM,NA 139.0 mEq/L (136-145)
[2024-12-16 16:04] LABS: APPEARANCE,URINE CLEAR (Clear); GLUCOSE,URINE 3+ (Negative); OCCULT BLOOD,URINE NEGATIVE (Negative)
[2024-12-16 16:44] LABS: BUPRENORPHINE SCREEN,URINE NEGATIVE (CUTOFF=10); METHADONE SCREEN, URINE NEGATIVE (CUT0FF=200); METHAMPHETAMINES SCREEN, URINE NEGATIVE (CUTOFF=500); OXYCODONE SCREEN,URINE PRESUMPTIVE POSITIVE (CUT0FF=100); THC SCREEN,URINE 20 NG/ML NEGATIVE (CUTOFF=50)
[2024-12-16 16:46] LABS: AMPHETAMINES SCREEN, URINE NEGATIVE (CUTOFF=500)
[2024-12-16] MEDS ORDERED: hydrALAZINE 20 MG/ML SDV IVPUSH PRN (17:35)
[2024-12-16] MEDS ORDERED: Labetalol 100 MG/20 ML MDV IVPUSH PRN (17:35)
[2024-12-16] MEDS ORDERED: Ondansetron 4 MG Tab.DIS PO PRN (17:36)
[2024-12-16] MEDS ORDERED: Sennosides/Docusate Sodium 50-8.6 MG Tab PO PRN (17:36)
[2024-12-16] MEDS ORDERED: 50% Dextrose in Water 50 ML Syringe IVPUSH PRN (17:48)
[2024-12-16] MEDS: Nitroglycerin 0.3 MG Tab.SL SL PRN (17:59)
[2024-12-16] MEDS: Insulin Lispro 100 Unit/ML 3 ML KwikPen SUBCUT SCH (21:18)
[2024-12-17 05:05] LABS: BLOOD UREA NITROGEN,BUN 19.0 mg/dL (7-18); CARBON DIOXIDE,CO2 27.0 mEq/L (21-32); CHLORIDE,CL 104.0 mEq/L (98-107); CREATININE 0.8 mg/dL (0.7-1.3); EST CRCL DRUG DOSING (CG) 99.75 mL/min; ESTIMATED GFR 104.0 mL/min (>60); GLUCOSE RANDOM 102.0 mg/dL (70-99); PHOSPHORUS 3.7 mg/dL (2.6-4.7); POTASSIUM,K 4.0 mEq/L (3.5-5.1); SODIUM,NA 138.0 mEq/L (136-145)
[2024-12-17] MEDS ORDERED: Cholecalciferol (Vitamin D3) 25 MCG Tab PO SCH (09:00)
[2024-12-17] MEDS ORDERED: Remove Patch *NICOTINE TRDERM SCH (09:00)
[2024-12-17 13:47] LABS: CHOLESTEROL HDL 38 mg/dL (40-59); CHOLESTEROL LDL DIRECT 130 mg/dL (<100); CHOLESTEROL TOTAL 191 mg/dL (<200)
[2024-12-17 13:49] VITALS: BP 145/81; PULSE 77
== END 2024-12-17 14:20 | disposition home or self-care (01) ==
LOC: JD.ED 13:01 → JD.MS 16:11
PROVIDERS: ADMIT Family Medicine; ATTEND Family Medicine
DX: R07.9 Chest pain, unspecified (principal); E11.9 Type 2 diabetes mellitus without complications; E78.00 Pure hypercholesterolemia, unspecified; E66.9 Obesity, unspecified; I10 Essential (primary) hypertension; Z88.8 Allergy status to other drugs, medicaments and biological substances; Z68.30 Body mass index [BMI] 30.0-30.9, adult; Z79.84 Long term (current) use of oral hypoglycemic drugs; Z79.899 Other long term (current) drug therapy
CPT/HCPCS: 36415; 71045; 78452; 80048; 80053; 80061; 80306; 81003; 82947; 83605; 83735; 84100; 84484; 85025; 85379; 93005; 93017; 96374; 96376; 99285; A9270; A9500; J2785; J3490; J7030; 93010; J1171